=== PATIENT | male | born 1935 | race Caucasian/White ===

== ENCOUNTER → 2020-05-14 15:04 | Outpatient (BNVA) | payer MEDICARE, SELFPAY | PROVIDERS: Family Provider Nurse Practitioner; PCP Nurse Practitioner; Visit Provider Nurse Practitioner | DX: E78.2 Mixed hyperlipidemia (principal); I10 Essential (primary) hypertension | CPT/HCPCS: 80053; 80061; 81000; 85025 ==

== ENCOUNTER → 2020-11-12 10:58 | Outpatient (BNVA) | payer MEDICARE, SELFPAY | PROVIDERS: Family Provider Nurse Practitioner; PCP Nurse Practitioner; Visit Provider Nurse Practitioner | DX: I10 Essential (primary) hypertension (principal); E78.2 Mixed hyperlipidemia | CPT/HCPCS: 80053; 80061; 81000; 84443 ==

== ENCOUNTER → 2021-05-14 11:01 | Outpatient (BNVA) | payer MEDICARE, SELFPAY | PROVIDERS: Family Provider Nurse Practitioner; PCP Nurse Practitioner; Visit Provider Nurse Practitioner | DX: I10 Essential (primary) hypertension (principal); E78.2 Mixed hyperlipidemia | CPT/HCPCS: 80053; 80061; 81000; 84443 ==

== ENCOUNTER → 2021-11-19 13:49 | Outpatient (BNVA) | payer MEDICARE, SELFPAY | PROVIDERS: Family Provider Nurse Practitioner; PCP Nurse Practitioner; Visit Provider Nurse Practitioner | DX: I10 Essential (primary) hypertension (principal); E78.2 Mixed hyperlipidemia | CPT/HCPCS: 80053; 80061; 81000; 85025 ==

== ENCOUNTER → 2022-06-10 11:22 | Outpatient (BNVA) | payer MEDICARE, SELFPAY | PROVIDERS: Family Provider Nurse Practitioner; PCP Nurse Practitioner; Visit Provider Nurse Practitioner | DX: I10 Essential (primary) hypertension (principal); E78.2 Mixed hyperlipidemia; H61.23 Impacted cerumen, bilateral | CPT/HCPCS: 80053; 80061; 81000; 84443 ==

== ENCOUNTER → 2022-11-25 11:18 | Outpatient (BNVA) | payer MEDICARE, SELFPAY | PROVIDERS: Family Provider Nurse Practitioner; PCP Nurse Practitioner; Visit Provider Nurse Practitioner | DX: E55.9 Vitamin D deficiency, unspecified (principal); I10 Essential (primary) hypertension; E78.2 Mixed hyperlipidemia | CPT/HCPCS: 80053; 80061; 81000; 82306; 84443; 85025 ==

== ENCOUNTER → 2023-02-17 10:13 | Outpatient (BNVA) | payer MEDICARE, SELFPAY | PROVIDERS: Family Provider Nurse Practitioner; PCP Nurse Practitioner; Visit Provider Nurse Practitioner | DX: I10 Essential (primary) hypertension (principal); E55.9 Vitamin D deficiency, unspecified; Z87.891 Personal history of nicotine dependence | CPT/HCPCS: 71046; 80053; 80061; 82306; 85025 ==

== ENCOUNTER → 2023-08-04 09:30 | Outpatient (BNVA) | payer MEDICARE, SELFPAY | PROVIDERS: Family Provider Nurse Practitioner; PCP Nurse Practitioner; Visit Provider Nurse Practitioner | DX: E55.9 Vitamin D deficiency, unspecified (principal); E78.2 Mixed hyperlipidemia; I10 Essential (primary) hypertension; Z23 Encounter for immunization | CPT/HCPCS: 80053; 80061; 82306; 84443 ==

== ENCOUNTER → 2024-01-27 09:50 | Outpatient (BNVA) | payer MEDICARE, SELFPAY | PROVIDERS: Family Provider Nurse Practitioner; PCP Nurse Practitioner; Visit Provider Nurse Practitioner | DX: I10 Essential (primary) hypertension (principal); E55.9 Vitamin D deficiency, unspecified | CPT/HCPCS: 80053; 80061; 82306; 82607; 84443 ==

== ENCOUNTER → 2024-07-07 08:14 | Outpatient (BNVA) | payer MEDICARE, SELFPAY | PROVIDERS: Family Provider Nurse Practitioner; PCP Nurse Practitioner; Visit Provider Nurse Practitioner | DX: I10 Essential (primary) hypertension (principal); E53.8 Deficiency of other specified B group vitamins | CPT/HCPCS: 80053; 80061; 82607; 84443 ==

== ENCOUNTER → 2024-12-08 10:43 | Outpatient (BNVA) | payer MEDICARE, SELFPAY | PROVIDERS: Family Provider Nurse Practitioner; PCP Nurse Practitioner; Visit Provider Nurse Practitioner | DX: I10 Essential (primary) hypertension (principal); E53.8 Deficiency of other specified B group vitamins; E78.2 Mixed hyperlipidemia | CPT/HCPCS: 71046; 74018; 80053; 82306; 82607; 85025 ==

== ENCOUNTER → 2025-05-18 08:46 | Outpatient (BNVA) | payer MEDICARE, SELFPAY | PROVIDERS: Family Provider Nurse Practitioner; PCP Nurse Practitioner; Visit Provider Nurse Practitioner | DX: E78.2 Mixed hyperlipidemia (principal); E53.8 Deficiency of other specified B group vitamins; E55.9 Vitamin D deficiency, unspecified | CPT/HCPCS: 80053; 80061; 82306; 82607; 84443 ==

== ENCOUNTER 2025-08-22 11:40 | Inpatient (IN) | payer MEDICARE, SELFPAY ==
[2025-08-22] VITALS (48 sets, daily range): BP systolic 49–163; BP diastolic 37–93; PULSE 39–100; RESP 14–33; TEMP 28.7–35.6; O2SAT 79–100; BMI 23.8
--- NOTE | 2025-08-22 11:42 | CT_ITS ---
WS: [id number] CT HEAD NONCONTRAST HISTORY: Altered mental status, CVA TECHNIQUE: Contiguous axial imaging performed through the brain. Bone and soft tissue windows. Sagittal and coronal reformats reviewed. All CT scans at [facility] use at least one of these dose optimization techniques: automated exposure control; mA and/or kV adjustment per patient size (includes targeted exams where dose is matched to clinical indication); or iterative reconstruction. DLP: 1222.08 mGy.cm COMPARISON: None available. No acute intracranial hemorrhage, midline shift or mass effect. Moderate symmetric atrophy. There is both cerebellar and cerebral atrophy and mild small vessel disease. Ventricles: Ventricles and extra-axial spaces are mildly prominent on the basis of atrophy. No inferior displacement of the cerebellar tonsils. Paranasal sinuses: As visualized are clear. Mastoid air cells: Well pneumatized. Calvarium and scalp: Skull is intact with no soft tissue edema or swelling. CT/CT head wo con* [id number] IMPRESSION: 1. No acute intracranial hemorrhage or edema. 2. Moderate cerebral and cerebellar atrophy. 3. Minimal small vessel changes. 4. No fracture.
--- NOTE | 2025-08-22 11:43 | XR_ITS ---
WS: [id number] Exam: XR chest 1V portable [id number] Date/Time of Exam: 08/22/2025 11:43 AM Reason For Exam: dyspnea/cough Comparison 12/08/2024. Lungs are clear and fully inflated. Normal cardiomediastinal silhouette and regional bony elements. No pleural effusion. XR/XR chest 1V portable [id number] IMPRESSION: 1. Negative chest.
--- NOTE | 2025-08-22 11:47 | W.ED.GENADLT ---
HPI - General Adult General: Chief complaint: Altered Mental Status Stated complaint: unresponsive Time Seen by Provider: 08/22/25 11:42 History of Present Illness: 89-year-old male presents emergency room via EMS unresponsive. Patient was a subject of a welfare check 3 days ago at which time he was reported to have answered the door ambulating and talked to law enforcement. Another welfare check was called for today he was found naked on the floor and unresponsive. His last known well was going to be greater than 3 days ago. He is nonresponsive with a fixed gaze to the right. He has abrasions on his knees there is no family members available with him the history is from old records and from EMS. Only family lives out of state which is why the welfare checks were done. Related Data Home Medications ?Medication ?Instructions ?Recorded ?Confirmed aspirin 81 mg tablet,delayed 81 mg PO DAILY 05/14/20 08/22/25 release Previous Rx's ?Medication ?Instructions ?Recorded docusate sodium 100 mg capsule 100 mg PO BID #60 caps 02/23/25 (Colace) cholecalciferol (vitamin D3) 125 125 mcg PO DAILY #30 caps 05/18/25 mcg (5,000 unit) capsule cyanocobalamin (vitamin B-12) 1,000 mcg IM .every12 weeks #1 mL 05/18/25 1,000 mcg/mL injection solution fenofibrate nanocrystallized 145 145 mg PO DAILY #90 tabs 05/18/25 mg tablet (Tricor) lisinopril 10 mg tablet 10 mg PO DAILY #90 tabs 05/18/25 metoprolol tartrate 25 mg tablet 25 mg PO BID #180 tabs 05/18/25 syringe with needle 3 mL 22 gauge #1 ea 05/18/25 x 1 Allergies Allergy/AdvReac Type Severity Reaction Status Date / Time No Known Allergies Allergy Verified 05/18/25 08:19 Review of Systems General: Reports: ROS unobtainable due to medical condition and ROS unobtainable due to mental status [facility] PFSH: Medical History Personal history of nicotine dependence Mixed hyperlipidemia Essential hypertension Surgical History History of prostatectomy History of hernia repair Family History Grandfather Cancer Throat Social History Smoking and tobacco/nicotine status: current every day tobacco/nicotine user Second hand smoke exposure: Yes Alcohol intake: unknown Substance/Drug Use: unknown Adopted: No Caregiver/support person: No Lives independently: Yes Household members: spouse Housing: House Marital status: Current occupational status: retired Do you think of yourself as: Straight/Heterosexual Current gender identity: Male Physical Exam HENMT: COMMON NORMALS: normocephalic, atraumatic and hearing grossly normal bilaterally HEAD & SCALP: normocephalic and atraumatic Eye: OTHER: Fixed gaze to the right Resp: COMMON NORMALS: normal respiratory effort, No retractions, No use of accessory muscles and clear to auscultation bilaterally AUSCULTATION: clear to auscultation bilaterally Cardio: COMMON NORMALS: regular rate, regular rhythm and No murmurs present (Cardio) RATE: regular rate RHYTHM: regular rhythm GI: COMMON NORMALS: Soft to palpation and No hepatosplenomegaly present AUSCULTATION: Yes normoactive bowel sounds PALPATION: Yes Soft to palpation, No Tenderness to palpation present (GI), No Guarding due to palpation present (GI) and Yes No hepatosplenomegaly present Extremity: COMMON NORMALS: normal to inspection, capillary refill normal, no clubbing, cyanosis or edema, no calf tenderness and no pedal edema Skin: OTHER: Abrasions on the knees partial-thickness no signs active drainage Course Vital Signs: Vital signs: Vital Signs Temperature 99.0 F 08/26/25 23:54 Pulse Rate 91 08/26/25 23:54 Respiratory Rate 22 H 08/26/25 23:54 Blood Pressure 77/48 08/26/25 23:54 Pulse Oximetry 59 L 08/26/25 23:54 Oxygen Delivery Me thod Nasal Cannula 08/26/25 23:54 Oxygen Flow Rate 3 08/26/25 23:54 Fraction of Inspir ed Oxygen 40 08/25/25 08:28 MDM - General Adult Medical Decision Making Long discussion with family numbers on the phone they would like a modified code initially. They do not wanted to be intubated but willing to be CPR. Discussed with him that his condition is very precipitous. 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 Also discussed with him that if we were going to pursue aggressive treatment with this he would need to be transferred however currently he is not in any condition to even tolerate a biopsy. After long discussion and they opted instead to keep the patient and our facility wish to do what we can for now and then they will reevaluate. Discussed with hospitalist orders written. Patient is a modified Do Not Recussitate they are not willing to allow his ACLS protocols and chest compressions but do not want him to be intubated. Patient has metabolic encephalopathy sepsis elevated troponin acute kidney injury with leukocytosis. Hypokalemia with potassium 2.7 lactic acid elevated at 5.6 acute kidney injury with creatinine of 1.9. Initial delta 2-hour delta troponin -9. Lipase is 382 no signs of UTI serum ketones negative and flu COVID and RSV negative. Patient given IV fluid bolus for sepsis also started on IV antibiotics discussed with hospitalist orders are written. Medical Records I reviewed the patient's medical records. Lab Data I reviewed the patient's lab results. 08/24/25 11:24 08/25/25 04:[address] 08/22/25 11:42 IMPRESSION: 1. No acute intracranial hemorrhage or edema. 2. Moderate cerebral and cerebellar atrophy. 3. Minimal small vessel changes. 4. No fracture. Abdomen/Pelvis CT 08/22/25 11:53 IMPRESSION: 1. 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 Mass measures 4.7 x 5.3 x 7.0 cm. Encasement and possible occlusion of the RIGHT renal artery and vein although there is no enlargement of the kidney. 2. Additional mesenteric and retroperitoneal masses identified. 3. The largest additional mass in the RIGHT inguinal region extends inferiorly along the spermatic cord into the scrotum. There is marked scrotal wall thickening. Possible testicular mass. 4. Differential of the above findings includes lymphoma and testicular lymphoma. 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 Sarcoma should also be considered. 5. Donis catheter is present but the balloon is distended within the urethra. Urinary bladder remains dilated. Urethra is being slightly displaced to the LEFT by the testicular and scrotal mass. 6. Cholelithiasis without evidence for acute cholecystitis. Notified Raza Bruno DO at 08/22/2025 1:15 PM. Chest X-Ray 08/24/25 11:08 IMPRESSION: 1. Limited inspiration. No acute process is suspected. Laboratory Results WBC 7.19 10^3/uL (3.29-11.43) 08/22/25 11:49 RBC 3.98 10^6/uL (3.85-5.65) 08/22/25 11:49 Hgb 13.20 g/dL (11.27-16.99) 08/22/25 11:49 Hct 38.7 % (37-53) 08/22/25 11:49 MCV 97.2 fl (82-101) 08/22/25 11:49 MCH 33.2 pg (27-33) H 08/22/25 11:49 MCHC 34.1 g/dL (30-55) 08/22/25 11:49 RDW 14.6 % (12.1-15.1) 08/22/25 11:49 Plt Count 165 10^3/cmm (157-399) 08/22/25 11:49 MPV 11.7 fL (7.4-10.4) H 08/22/25 11:49 Neut % (Auto) 68.6 % 08/22/25 11:49 Lymph % (Auto) 13.9 % 08/22/25 11:49 [place] % (Auto) 16.3 % 08/22/25 11:49 Eos % (Auto) 0.1 % 08/22/25 11:49 Baso % (Auto) 0.1 % 08/22/25 11:49 Neut # (Auto) 4.93 10^3/uL (1.8-7.7) 08/22/25 11:49 Lymph # (Auto) 1.0 10^3/uL (0.8-4.8) 08/22/25 11:49 [place] # (Auto) 1.2 10^3/uL (0.2-0.9) H 08/22/25 11:49 Eos # (Auto) 0.0 10^3/uL (0.0-0.8) 08/22/25 11:49 Baso # (Auto) 0.0 10^3/uL (0.0-0.1) 08/22/25 11:49 Nucleated RBC % (auto) 0 % 08/22/25 11:49 Nucleated RBCs # 0.0 /100WBC 08/22/25 11:49 Specimen Type Arterial 08/22/25 11:35 Sample Site Radial, right 08/22/25 11:35 ABG pH 7.26 (7.35-7.45) L 08/22/25 11:35 ABG pCO2 40.7 mmHg (35-45) 08/22/25 11:35 ABG pO2 49.6 mmHg (80.0-100.0) L 08/22/25 11:35 ABG PO2/FiO2 Ratio 236 08/22/25 11:35 ABG HCO3 18.1 mmol/L (22-26) L 08/22/25 11:35 ABG O2 Saturation 81.6 08/22/25 11:35 ABG Base Excess -8.5 mmol/L (-2.0-2.0) L 08/22/25 11:35 Rob Test Pos 08/22/25 11:35 A-a O2 Gradient 6.5 mmHg (5-10) 08/22/25 11:35 Hematocrit 41.3 % (42-52) L 08/22/25 11:35 Hgb O2 Saturation 80.6 % (95-100) L 08/22/25 11:35 Carboxyhemoglobin 1.1 %THgb (0.4-20.1) 08/22/25 11:35 Methemoglobin 0.2 % (0.4-1.5) L 08/22/25 11:35 Total Hemoglobin 13.5 g/dL (14-18) L 08/22/25 11:35 Sodium 150.0 mmol/L (131-143) H 08/22/25 11:35 Potassium 2.4 mmol/L (3.5-5.0) L 08/22/25 11:35 Glucose 218.0 mg/dL (70-115) H 08/22/25 11:35 Ionized Calcium 1.7 mmol/L (1.1-1.4) H 08/22/25 11:35 O2 Delivery Device Room air 08/22/25 11:35 FiO2 21.0 % 08/22/25 11:35 Radio Recorder ID [place] 08/22/25 11:35 Sodium 147 mmol/L (136-145) H 08/22/25 11:49 Potassium 2.5 mmol/L (3.5-5.1) L* 08/22/25 11:49 Chloride 105 mmol/L (98-107) 08/22/25 11:49 Carbon Dioxide 19 mmol/L (22-29) L 08/22/25 11:49 Anion Gap 25.5 (5-19) H 08/22/25 11:49 BUN 43 mg/dL (8-23) H 08/22/25 11:49 Creatinine 2.2 mg/dL (0.7-1.2) H 08/22/25 11:49 GFR Calculation Not Reportable 08/22/25 11:49 Glucose 221 mg/dL (65-115) H 08/22/25 11:49 Calculated Osmolality 322 mOsm/kg (285-295) H 08/22/25 11:49 Lactic Acid 9.8 mmol/L (0.5-2.2) H* 08/22/25 11:49 Lactic Acid (Sepsis) 8.5 mmol/L (0.5-2.2) H* 08/22/25 14:24 Calcium 13.5 mg/dL (8.5-10.5) H 08/22/25 11:49 Magnesium 1.8 mg/dL (1.7-2.3) 08/22/25 11:49 Total Bilirubin 2.3 mg/dL (0.15-1.2) H 08/22/25 11:49 AST 187 U/L (0-40) H 08/22/25 11:49 ALT 50 U/L (0-41) H 08/22/25 11:49 Alkaline Phosphatase 54 U/L (40-130) 08/22/25 11:49 Creatine Kinase 7440 U/L (39-308) H* 08/22/25 11:49 Troponin T Baseline 82 ng/L (0-15) H 08/22/25 11:49 Troponin T 120 Minute 72.70 ng/L (0-15) H 08/22/25 13:05 Delta Troponin T -9.30 ABS# (0-10) L 08/22/25 13:05 Total Protein 7.0 g/dL (6.6-8.7) 08/22/25 11:49 Albumin 3.5 g/dL (3.5-5.2) 08/22/25 11:49 Globulin 3.5 g/dL (1.3-4.6) 08/22/25 11:49 Lipase 382 U/L (13-60) H 08/22/25 11:49 Urine Color Dark yellow (Yellow) A 08/22/25 12:12 Urine Appearance Clear (CLEAR) 08/22/25 12:12 Urine pH 5.5 (5-7) 08/22/25 12:12 Ur Specific [place] 1.025 (1.005-1.030) 08/22/25 12:12 Urine Protein 1+ (Negative) A 08/22/25 12:12 Urine Glucose (UA) Negative (Normal) 08/22/25 12:12 Urine Ketones Trace (Negative) 08/22/25 12:12 Urine Blood Negative (Negative) 08/22/25 12:12 Urine Nitrate Negative (Negative) 08/22/25 12:12 Urine Bilirubin 2+ (Negative) H 08/22/25 12:12 Urine Urobilinogen 1.0 mg/dL (Negative) 08/22/25 12:12 Ur Leukocyte Esterase Trace (Negative) A 08/22/25 12:12 Urine RBC 0-2 /hpf (0-2) 08/22/25 12:12 Urine WBC 0-5 /hpf (0-5) 08/22/25 12:12 Ur Squamous Epith Cells 0-5 /hpf (0-5) 08/22/25 12:12 Amorphous Sediment Not Reportable 08/22/25 12:12 Urine Bacteria None seen /hpf (NONE) 08/22/25 12:12 Hyaline Casts 2.05 /lpf 08/22/25 12:12 Serum Ketones Negative (Negative) 08/22/25 11:49 Influenza A (PCR) Negative (Negative) 08/22/25 13:45 Influenza Type B (PCR) Negative (Negative) 08/22/25 13:45 RSV (PCR) Negative (Negative) 08/22/25 13:45 SARS-CoV-2 (PCR) Negative (Negative) 08/22/25 13:45 All radiology interpretation(s) finalized by discharge EKG Data EKG 1: I personally reviewed and interpreted this EKG as follows: Computer generated interpretation: Head CT 08/22/25 11:42 IMPRESSION: 1. No acute intracranial hemorrhage or edema. 2. Moderate cerebral and cerebellar atrophy. 3. Minimal small vessel changes. 4. No fracture. Abdomen/Pelvis CT 08/22/25 11:53 IMPRESSION: 1. 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 Mass measures 4.7 x 5.3 x 7.0 cm. Encasement and possible occlusion of the RIGHT renal artery and vein although there is no enlargement of the kidney. 2. Additional mesenteric and retroperitoneal masses identified. 3. The largest additional mass in the RIGHT inguinal region extends inferiorly along the spermatic cord into the scrotum. There is marked scrotal wall thickening. Possible testicular mass. 4. Differential of the above findings includes lymphoma and testicular lymphoma. 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 Sarcoma should also be considered. 5. Donis catheter is present but the balloon is distended within the urethra. Urinary bladder remains dilated. Urethra is being slightly displaced to the LEFT by the testicular and scrotal mass. 6. Cholelithiasis without evidence for acute cholecystitis. Notified Raza Bruno DO at 08/22/2025 1:15 PM. Chest X-Ray 08/24/25 11:08 IMPRESSION: 1. Limited inspiration. No acute process is suspected. EKG 1111 2025-09-24 significant baseline artifact difficult to read. Rate of 48 QTc 380. No EKGs for comparison EKG 2: I personally reviewed and interpreted this EKG as follows: Interpretation: EKG 08/22/2025 rate of 50 significant baseline artifact unable to interpret compared to previous EKGs as persistent baseline artifact Computer generated interpretation: Head CT 08/22/25 11:42 IMPRESSION: 1. No acute intracranial hemorrhage or edema. 2. Moderate cerebral and cerebellar atrophy. 3. Minimal small vessel changes. 4. No fracture. Abdomen/Pelvis CT 08/22/25 11:53 IMPRESSION: 1. 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 Mass measures 4.7 x 5.3 x 7.0 cm. Encasement and possible occlusion of the RIGHT renal artery and vein although there is no enlargement of the kidney. 2. Additional mesenteric and retroperitoneal masses identified. 3. The largest additional mass in the RIGHT inguinal region extends inferiorly along the spermatic cord into the scrotum. There is marked scrotal wall thickening. Possible testicular mass. 4. Differential of the above findings includes lymphoma and testicular lymphoma. 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 Sarcoma should also be considered. 5. Donis catheter is present but the balloon is distended within the urethra. Urinary bladder remains dilated. Urethra is being slightly displaced to the LEFT by the testicular and scrotal mass. 6. Cholelithiasis without evidence for acute cholecystitis. Notified Raza Bruno DO at 08/22/2025 1:15 PM. Chest X-Ray 08/24/25 11:08 IMPRESSION: 1. Limited inspiration. No acute process is suspected. EKG 3: I personally reviewed and interpreted this EKG as follows: Interpretation: EKG still has persistent baseline artifact no acute ST elevation rate of 45 QTc 459. Compared to previous EKGs done same day Computer generated interpretation: Head CT 08/22/25 11:42 IMPRESSION: 1. No acute intracranial hemorrhage or edema. 2. Moderate cerebral and cerebellar atrophy. 3. Minimal small vessel changes. 4. No fracture. Abdomen/Pelvis CT 08/22/25 11:53 IMPRESSION: 1. 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 Mass measures 4.7 x 5.3 x 7.0 cm. Encasement and possible occlusion of the RIGHT renal artery and vein although there is no enlargement of the kidney. 2. Additional mesenteric and retroperitoneal masses identified. 3. The largest additional mass in the RIGHT inguinal region extends inferiorly along the spermatic cord into the scrotum. There is marked scrotal wall thickening. Possible testicular mass. 4. Differential of the above findings includes lymphoma and testicular lymphoma. 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 Sarcoma should also be considered. 5. Donis catheter is present but the balloon is distended within the urethra. Urinary bladder remains dilated. Urethra is being slightly displaced to the LEFT by the testicular and scrotal mass. 6. Cholelithiasis without evidence for acute cholecystitis. Notified Raza Bruno DO at 08/22/2025 1:15 PM. Chest X-Ray 08/24/25 11:08 IMPRESSION: 1. Limited inspiration. No acute process is suspected. Critical Care Time Critical Care Time: Critical Care Time: Yes Total Critical Care Time: 45 Attestation: The high probability of a clinically significant, sudden or life threatening deterioration of the patient's cardiovascular respiratory system(s) required my full and direct attention, intervention and personal management. The critical care time is as shown. This time is in addition to time spent performing any reported procedures but includes the following: [x] Data and vital sign review and interpretation [x] Patient assessment, examination and intervention [x] Documentation [x] Medication orders and management Discharge Plan Discharge Patient Disposition: Admitted As Inpatient Admit Provider: Jadon Weathers Condition: Stable Interventions: ED Discharge Assessment Last Done: 08/22/25 16:13 ED Charges Last Done: 08/22/25 16:13 Discharge Date/Time: 08/22/25 16:15 Coding Level of Care Code ED Residential Care Facility Manager for Vignesh Carrasco
[2025-08-22 11:48] LABS: ABG PCO2 40.7 mmHg (35-45); ABG PH Result 7.26 (7.35-7.45); Alveolar-Arterial Oxygen Gradi 6.5 mmHg (5-10); Arterial Blood Gas Hematocrit 41.3 % (42-52); Blood Gas Allen Test Pos; Blood Gas Operator Identificat MONRO; Blood Gas Sample Site Radial, right; Blood Gas Sample Type Arterial; Carboxyhemoglobin 1.1 %THgb (0.4-20.1); Glucose Level-ABG 218.0 mg/dL (70-115); HCO3 ABG 18.1 mmol/L (22-26); Ionized Calcium Level - ABG 1.7 mmol/L (1.1-1.4); Methemoglobin 0.2 % (0.4-1.5); Oxygen Saturation ABG 81.6; PO2 ABG 49.6 mmHg (80.0-100.0); PO2 FiO2 Ratio Arterial Blood 236; Potassium Level - ABG 2.4 mmol/L (3.5-5.0); Sodium Level - ABG 150.0 mmol/L (131-143)
--- NOTE | 2025-08-22 11:53 | CT_ITS ---
WS: [id number] CT ABDOMEN AND PELVIS NONCONTRAST HISTORY: Abdominal pain TECHNIQUE: Imaging performed through the abdomen and pelvis. Coronal and sagittal reformats are submitted. All CT scans at [facility] use at least one of these dose optimization techniques: automated exposure control; mA and/or kV adjustment per patient size (includes targeted exams where dose is matched to clinical indication); or iterative reconstruction. DLP: 840.39 mGy.cm COMPARISON: None available. Lower thorax: Mild dependent changes at the lung bases. No pneumonia. Normal size heart. Moderate size hiatal hernia. Liver: Normal size liver. No mass or bile duct dilatation. Gallbladder: Normally distended gallbladder with cholelithiasis. Pancreas: Normal size and attenuation. Normal pancreatic duct. No pancreatitis or mass. Spleen: Normal. Adrenal glands: Normal. No mass. Right kidney: Mild perinephric stranding. No obstruction. Left kidney: Mild perinephric stranding. No obstruction. Aorta: Dense calcification throughout the aorta. No aneurysm. Calcification continues into the iliac arteries. High-grade stenosis proximal RIGHT iliac artery. IVC: There is a large heterogeneous mass encasing the IVC at the level of the RIGHT renal artery and vein. Mass measures 4.7 x 5.3 cm. This mass extends over a length of 7.0 cm. There are additional scattered soft tissue masses. RIGHT lower quadrant metastatic deposit 1.8 cm. There are a few scattered retroperitoneal lymph nodes with the largest measuring up to 1.6 cm, LEFT retroperitoneum. Large mass in the RIGHT pelvis and inguinal region. The most inferior mass in the RIGHT inguinal region is contiguous along the spermatic cord into the scrotum. This mass extends over a length of at least 18 cm and is in part contiguous with small bowel. There is marked scrotal wall thickening. Suspect testicular mass. GI tract: No GI tract obstruction. Abdominal wall: Small umbilical hernia containing fat only. Pelvis: Urinary bladder is well distended. There is a Donis catheter present but the balloon is inflated in the urethra. The urethra is being displaced to the LEFT of midline by the scrotal/testicular mass. Osseous structures: Diffuse osteopenia. Multiple compression fractures. Fractures involving T11, T12, L1. CT/CT abdomen pelvis wo con [id number] IMPRESSION: 1. Large mass encasing the IVC at the level of the RIGHT renal artery and vein . Mass measures 4.7 x 5.3 x 7.0 cm. Encasement and possible occlusion of the RI GHT renal artery and vein although there is no enlargement of the kidney. 2. Additional mesenteric and retroperitoneal masses identified. 3. The largest additional mass in the RIGHT inguinal region extends inferiorly along the spermatic cord into the scrotum. There is marked scrotal wall thicke hoda. Possible testicular mass. 4. Differential of the above findings includes lymphoma and testicular lymphom a. 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 Sarcoma should also be c onsidered. 5. Donis catheter is present but the balloon is distended within the urethra. Urinary bladder remains dilated. Urethra is being slightly displaced to the LEF T by the testicular and scrotal mass. 6. Cholelithiasis without evidence for acute cholecystitis. Notified Raza Bruno DO at 08/22/2025 1:15 PM.
[2025-08-22 12:02] LABS: Hematocrit 38.7 % (37-53); Hemoglobin 13.20 g/dL (11.27-16.99); Mean Corpuscular HGB Conc 34.1 g/dL (30-55); Mean Corpuscular Hemoglobin 33.2 pg (27-33); Mean Corpuscular Volume 97.2 fl (82-101); Nucleated Red Blood Cells % 0 %; Platelet Count 165 10^3/cmm (157-399); Red Blood Count 3.98 10^6/uL (3.85-5.65); White Blood Count 7.19 10^3/uL (3.29-11.43)
[2025-08-22 12:12] LABS: Ketone (Acetest) Serum Negative (Negative)
--- NOTE | 2025-08-22 12:12 | PC.PHAR ---
Verified med list with MANISHA [place]
--- NOTE | 2025-08-22 12:14 | ECG_ITS ---
[facility]25[facility] Pat Name: Edil Fine Department: Room: Gender: Male Pharmacy Clinical Coordinator: : 1935 Requested By: Raza Orozco Order Number: [id number] Cagle MD: Seun Aparicio M.D. Measurements Intervals [place] Rate: 48 P: 0 CO: 0 QRS: -29 QRSD: 153 T: 180 QT: 422 QTc: 380 Interpretive Statements TECHNICALLY POOR TRACING - PLEASE REPEAT ECG Compared to ECG 04/06/2018 17:20:30 ECG NO LONGER INTERPRETABLE DUE TO ARTIFACT Electronically Signed On 08-23-2025 20:22:15 MOLD CARPENTER by Seun Aparicio M.D. [email or web address]
[2025-08-22 12:18] LABS: Troponin(5th) Baseline 82 ng/L (0-15)
[2025-08-22 12:21] LABS: Alanine Aminotransferase 50 U/L (0-41); Albumin Level 3.5 g/dL (3.5-5.2); Alkaline Phosphatase 54 U/L (40-130); Anion Gap 25.5 (5-19); Aspartate Amino Transferase 187 U/L (0-40); Blood Urea Nitrogen 43 mg/dL (8-23); Calcium 13.5 mg/dL (8.5-10.5); Carbon Dioxide 19 mmol/L (22-29); Chloride 105 mmol/L (98-107); Globulin 3.5 g/dL (1.3-4.6); Glucose 221 mg/dL (65-115); Magnesium 1.8 mg/dL (1.7-2.3); Osmolality Calculated 322 mOsm/kg (285-295); Sodium 147 mmol/L (136-145); Total Protein 7.0 g/dL (6.6-8.7)
[2025-08-22 12:24] LABS: Glucose Urine UA Negative (Normal); Nitrate Urine Negative (Negative); Specific Gravity, Urine 1.025 (1.005-1.030)
[2025-08-22 12:27] LABS: Lactic Sepsis W/Reflex 9.8 mmol/L (0.5-2.2); Potassium 2.5 mmol/L (3.5-5.1)
[2025-08-22 12:27] LABS: Add Urine Microscopic? YES
[2025-08-22 12:33] LABS: Lipase 382 U/L (13-60)
--- NOTE | 2025-08-22 12:51 | PC.NURSE ---
Call to pts daughter vanna who is listed as emergency contact. Gave pt update and confirmed that Dr. Bruno could call once we had CT results and labs back.
[2025-08-22 12:56] LABS: Reflex Lactate Order REFLEX LACTIC ORDERD
[2025-08-22] MEDS: norepinephrine 4 MG/250 ML BAG 30 MG IV (13:15)
--- NOTE | 2025-08-22 13:15 | PC.NURSE ---
unable to obtain manual or automatic blood pressure. this nure, charge nurse and housekeeping and laundry team leader attempted. notified.
[2025-08-22] MEDS: piperacillin-tazobactam 3.375 GM in sodium chloride 0.9% (plus) 50 ML IV (13:17)
[2025-08-22] MEDS: lidocaine 1% 5 ML in potassium chloride premix 100 ML 26.25 ML IV (13:26)
[2025-08-22] MEDS: ketamine 100 mg/mL Inj 5 mL IVP (13:39)
--- NOTE | 2025-08-22 13:41 | PC.NURSE ---
unable to obtain rectal temp. zamzam lomeli applied to PT
--- NOTE | 2025-08-22 13:44 | PC.NURSE ---
This nurse lighthouse keeper and ER charge nurse attempted to place a spence catheter unsuccessful Dr. Bruno notified
--- NOTE | 2025-08-22 13:56 | ECG_ITS ---
[facility] Date: 2025-08-22 Pat Name: Edil Fine Department: Room: Gender: Male Rn Wound: : 1935 Requested By: Raza Orozco Order Number: [id number] Gurjit MD: Seun Aparicio M.D. Measurements Intervals [place] Rate: 50 P: 0 MS: 0 QRS: 0 QRSD: 0 T: 267 QT: 412 QTc: 378 Interpretive Statements TECHNICALLY POOR TRACING - NONDIAGNOSTIC EKG Electronically Signed On 08-27-2025 17:52:14 EXPLOSIVE ORDNANCE DISPOSAL SPECIALIST by Seun Aparicio M.D. [email or web address]
--- NOTE | 2025-08-22 14:07 | PC.NURSE ---
LUCIA AGGARWAL CONTACTED AND VERBALIZED WITH DR. RAMOS AND THIS NURSE THAT FAMILY WANTS PT TO BE DNI. LUCIA LEFT CONTACT NUMBER FOR ANY PT CHANGES. .
[2025-08-22 14:25] LABS: Respiratory Syncytial Virus Ce NEGATIVE (Negative); SARS-CoV-2 PCR NEGATIVE (Negative)
[2025-08-22 15:04] LABS: Lactic Acid level (Lactate) 8.5 mmol/L (0.5-2.2)
[2025-08-22] MEDS: amiodarone 150 MG/100 ML PREMIX 400 MG IV (15:23)
[2025-08-22] MEDS: AMIODARONE HCL/D5W 900 MG/500 ML BAG 33.33 MG IV (15:46)
--- NOTE | 2025-08-22 15:48 | PM.HP ---
Providers/Chief Complaint Admitting Physician: Jadon Weathers MD Primary Care Provider: Efrem Regalado, NIKOLAS-Evans Chief Complaint: Found naked and unresponsive at home History of Present Illness Edil Fine is a 89 year old male that was brought to the ER this afternoon by family members given reports of being found unconscious on the floor. Last time patient was seen was about 3 days ago, thereby prompting a welfare check by the police. Upon arrival by the police at patient's home, patient was found on the floor, with blisters on the skin. Consequently, he was brought to the ER for further evaluation. At the ER, patient was found to have some blisters/skin breakdown. Further evaluation revealed some elevated CK level and the acute renal failure. He was also found to be acidotic, with low BP. He was given some fluid boluses, and thereafter started on some Levophed drip, the blood pressure had been failed to be corrected with the fluid boluses. Given further complications, patient was started on assisted ventilation with BiPAP, given persistently low oxygen saturation that was not corrected adequately with oxygen supplementation by nasal cannula. As at the time that I saw him there in the ER, he was still mentally altered. Otherwise, the nurse reports the patient was having some episodes of V-fib, and the for which amiodarone drip has been ordered by the ER physician. There was no family member or close relative that was close by to give any further information. The above information was obtained by reviewing the ER physician's note, as well as information they are obtained from the ER physician and the ER nurse. Review of Systems Narrative: Unable to obtain review of systems given patient's altered mental status. Medications/Allergies Home Medications ?Medication ?Instructions ?Recorded ?Confirmed ?Last Taken ?Type aspirin 81 mg tablet,delayed 81 mg PO DAILY 05/14/20 08/22/25 Unknown History release docusate sodium 100 mg capsule 100 mg PO BID #60 caps 02/23/25 08/22/25 Unknown Rx (Colace) cholecalciferol (vitamin D3) 125 125 mcg PO DAILY #30 caps 05/18/25 08/22/25 Unknown Rx mcg (5,000 unit) capsule cyanocobalamin (vitamin B-12) 1,000 mcg IM .every12 weeks #1 mL 05/18/25 08/22/25 Unknown Rx 1,000 mcg/mL injection solution fenofibrate nanocrystallized 145 145 mg PO DAILY #90 tabs 05/18/25 08/22/25 Unknown Rx mg tablet (Tricor) lisinopril 10 mg tablet 10 mg PO DAILY #90 tabs 05/18/25 08/22/25 Unknown Rx metoprolol tartrate 25 mg tablet 25 mg PO BID #180 tabs 05/18/25 08/22/25 Unknown Rx syringe with needle 3 mL 22 gauge #1 ea 05/18/25 08/22/25 Unknown Rx x 1 Allergies Allergy/AdvReac Type Severity Reaction Status Date / Time No Known Allergies Allergy Verified 05/18/25 08:19 PFSH Acute PFSH: Medical History Personal history of nicotine dependence Mixed hyperlipidemia Essential hypertension Surgical History History of prostatectomy History of hernia repair Family History Grandfather Cancer Throat Social History Smoking and tobacco/nicotine status: current every day tobacco/nicotine user Second hand smoke exposure: Yes Alcohol intake: unknown Substance/Drug Use: unknown Adopted: No Caregiver/support person: No Lives independently: Yes Household members: spouse Housing: House Marital status: Current occupational status: retired Do you think of yourself as: Straight/Heterosexual Current gender identity: Male Vitals/I&O/Wt Last Vital Signs Temp 83.6 F L 08/22/25 15:42 Pulse 40 L 08/22/25 15:30 Resp 16 08/22/25 15:30 BP 138/77 08/22/25 15:30 Pulse Ox 100 08/22/25 15:30 O2 Del Method BiPAP 08/22/25 15:30 FiO2 70 08/22/25 14:33 08/22/25 08/22/25 08/22/25 06:59 14:59 22:59 Intake Total 3435 / 3435 Balance 3435 / 3435 Weight last 48 hrs Weight 73.028 kg Physical Exam Narrative: Const: GENERAL APPEARANCE : Unresponsive pat ient. BiPAP in si tu. Chest: COMMONS NORMALS: n ormal inspection o f the chest Resp: BiPAP in situ. Re markable crackles with significant b ronchial breath so unds on the right. No wheezes/rhonc hi appreciated. Cardio: COMMON NORMALS: no JVD RATE: tachyc ardic (Rate in the 120s.) HEART LESA NDS: Unable to flavio reciate heart soun ds. PERIPHERAL PU LSES: Peripheral p ulses bilateral fa int pulses GI: COMMON NORMALS: Ot herwise obese abdo men. Normal to in spection, nondiste nded, normoactive bowel sounds prese nt Extremity: COMMON NORMALS: Re latively cool extr emities. Normal t o inspection and n o pedal edema Neuro: COMMON NORMALS: Un responsive patient , overall. Sponta neous bilateral ga ze is noted. Othe rwise, no focal mo tor deficits immed iately appreciated Skin: Remarkablly dry sk in with dry mucous membrane. No obv ious rashes/abnorm al lesions appreci ated. Data 08/22/25 11:49 08/22/25 11:49 CXR: Radiologist's impression: Comparison 12/08/2024. Lungs are clear and fully inflated. Normal cardiomediastinal silhouette and regional bony elements. No pleural effusion. IMPRESSION: Negative chest. CT Abd/Pel: Radiologist's impression: IMPRESSION: 1. 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 Mass measures 4.7 x 5.3 x 7.0 cm. Encasement and possible occlusion of the RIGHT renal artery and vein although there is no enlargement of the kidney. 2. Additional mesenteric and retroperitoneal masses identified. 3. The largest additional mass in the RIGHT inguinal region extends inferiorly along the spermatic cord into the scrotum. There is marked scrotal wall thickening. Possible testicular mass. 4. Differential of the above findings includes lymphoma and testicular lymphoma. 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 Sarcoma should also be considered. 5. Donis catheter is present but the balloon is distended within the urethra. Urinary bladder remains dilated. Urethra is being slightly displaced to the LEFT by the testicular and scrotal mass. 6. Cholelithiasis without evidence for acute cholecystitis. A&P Assessment and plan 1. Acute metabolic encephalopathy: 2. Acute metabolic acidosis: 3. Acute renal failure due to rhabdomyolysis: 4. Lactic acid increased: 5. Acute hypokalemia: 6. Ventricular tachyarrhythmia: 7. Elevated troponin: 8. Essential hypertension: 9. Mixed hyperlipidemia: 10. Acute hypoxic respiratory failure: 11. Mass of right inguinal region: Plan: 1. Acute metabolic encephalopathy: Cause not clear at this time. Patient admitted to the medical ICU. Acute abdominal suspected causative symptoms empirically. 2. Acute renal failure due to rhabdomyolysis: Continue rehydration with half saline, given mild elevated sodium level. Otherwise, will give fluid boluses for low blood pressure. 3. Suspected sepsis with associated metabolic acidosis: No obvious source of infection noted by me at this time. However, acknowledged the findings of left thigh mass. Currently on Levophed, continue with this at this time. Will continue ongoing empiric antibiotics, [facility] from the ER. 4. Acute hypokalemia: Continue potassium replacement, prefer with the running intermittent basis. Recheck potassium in the morning, and the take it from there. 5. Ventricular tachyarrhythmia: Patient reports of some V-fib in the ER. Not sure whether he was stable unstable with this. Otherwise, patient was mental altered on presentation, well blood pressure maintained with the Levophed drip. Given concomitant elevated troponin, which is likely due to poor renal clearance with the hypotension, therefore strongly suggestive of type II myocardial leak, I have gone ahead and put in a consult with cardiology. I spoke with Dr. Aparicio, the roller coaster designer, who plans to see patient later, and direct further care regarding this. 6. Acute hypoxic respiratory failure: Continue BiPAP, and possibly intubated as needed. Continue to treat empirically; respite therapist to assess and treat. 7. 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 Will further address this when patient is able to wake up and/or when family arrives and gives further directives. Outpatient follow-up likely to be needed, with possible biopsy and a referral to oncology. 8. Essential hypertension + hyperlipidemia: These & other chronic medical problems currently stable. I will hold all antihypertensives at the rest of the home medications at this time. Other Treatment Plans: Repeat BMP and CBC in the morning. Repeat ABG in the morning as well,. Further plans to be adjusted as clinically patient evolves. See my orders and instructions for more details. PDMP PDMP Reviewed: Not Reviewed Attestations Medical Necessity Statement*: Patient admitted for apparent severe clinical condition, as outlined in the Assessment & Plan section above. Patient will need up to 2 midnight stay, estimated, at least, to adequately and appropriately treat and optimally control above-named clinical conditions, which include the acute metabolic encephalopathy with associated suspected severe sepsis, acute renal failure with severe rhabdomyolysis, acute hypokalemia, unspecified cardiac dysrhythmias, etc. Coding Level of Care Code Critical Care >/= 30 minutes Critical care time (in minutes): 35 The high probability of a clinically significant, sudden or life threatening deterioration of the patient's [respiratory, renal, cardiac, neurologic and other vital ] system(s) required my full and direct attention, intervention and personal management. The critical care time is as shown. This time is in addition to time spent performing any reported procedures but includes the following: [x] Data and vital sign review and interpretation [x] Patient assessment, examination and intervention [x] Documentation [x] Medication orders and management Diagnoses Acute metabolic encephalopathy G93.41 Acute metabolic acidosis E87.21 Acute renal failure due to rhabdomyolysis N17.9; M62.82 Lactic acid increased E87.20 Acute hypokalemia E87.6 Ventricular tachyarrhythmia I47.20 Elevated troponin R79.89 Essential hypertension I10 Mixed hyperlipidemia E78.2 Acute hypoxic respiratory failure J96.01 Mass of right inguinal region R19.09
--- NOTE | 2025-08-22 16:33 | ECG_ITS ---
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 Measurements Intervals [place] Rate: 45 P: 0 KS: 0 QRS: 85 QRSD: 137 T: 82 QT: 526 QTc: 459 Interpretive Statements TECHNICALLY POOR TRACING - NONDIAGNOSTIC EKG Electronically Signed On 08-27-2025 17:47:00 [employer] by Seun Aparicio M.D. [email or web address]
--- NOTE | 2025-08-22 16:40 | PC.NURSE ---
Arrived from ED
--- NOTE | 2025-08-22 17:01 | USCV_ITS ---
Edil Fine Age: 89 Gender: M : 1935 Exam Date: 08/22/2025 20:28 Ordering Phys: Lisette Rosario Technologist: LUIS ALBERTO Exam Location: [facility] [place] Indication: unresponsive on BIPAP in ICU-12, Acute renal failure. History of atrial fibrillation BP: 163 / 93 HR: 50 Rhythm: Sinus Technical Quality: Technically difficult c/o limited windows MEASUREMENTS (Male / Female) Normal Values 2D ECHO LV Diastolic Diameter PLAX 4.2 cm 4.2 - 5.9 / 3.9 - 5.3 cm IVS Diastolic Thickness 1.5 cm 0.6 - 1.0 / 0.6 - 0.9 cm IVS Systolic Thickness 1.7 cm LVPW Diastolic Thickness 0.7 cm 0.6 - 1.0 / 0.6 - 0.9 cm LVPW Systolic Thickness 0.9 cm LVOT Diameter 1.7 cm LV Ejection Fraction 2D Teich 31.4 % LV Ejection Fraction MOD 4C 54.7 % LV Ejection Fraction MOD 2C 65.3 % LV Ejection Fraction 2C AL 69.7 % LA Diameter 3.2 cm Aorta at Sinotubular Diameter 2.3 cm IVC Diameter 2.4 cm M-MODE LA Ao Ratio MM 1.0 AV Cusp Separation MM 1.7 cm DOPPLER AV Peak Velocity 107.0 cm/s LVOT Peak Velocity 60.0 cm/s AV Area Cont Eq vti 1.1 cm squared AV Area Cont Eq pk 1.3 cm squared MV Peak Velocity 51.0 cm/s MV Area PHT 2.6 cm squared Mitral E to A Ratio 0.8 TR Peak Velocity 216.0 cm/s TR Peak Gradient 18.7 mmHg TV Peak E Velocity 32.0 cm/s PV Peak Velocity 66.0 cm/s FINDINGS Left Ventricle Normal left ventricular cavity size. Moderate septal hypertrophy with no left ventricular outflow tract obstruction. Normal global left ventricular systolic function, EF 55%. Hypokinesis of the basal inferolateral wall segment. Indeterminate diastolic function due to atrial fibrillation. Right Ventricle Moderately increased right ventricular size. Mildly decreased right ventricular systolic function. Normal right ventricular systolic pressure. Right Atrium Normal right atrial size. Left Atrium Normal left atrial size. IA Septum Mild lipomatous hypetrophy of the atrial septum. Mitral Valve Normal mitral valve structure. No mitral valve stenosis or regurgitation. Aortic Valve Aortic valve not well visualized but atleast mildly thickened leaflets. No aortic valve stenosis or regurgitation. Tricuspid Valve Normal tricuspid valve structure. Trace regurgitation. Pulmonic Valve Normal pulmonic valve structure. Trace regurgitation. Pericardium Small pericardial effusion with fibrin inside the pericardial space along the right atrium and right ventricle. No right atrial or right ventricular collapse to suggest pericardial tamponade. Aorta Normal diameter of the aortic root and ascending thoracic aorta. IVC Mildly dilated IVC with less than 50% collapse on the ventrilator. CONCLUSIONS 1. Normal left ventricular cavity size. Normal global left ventricular systolic function, EF 55%. Hypokinesis of the basal inferolateral wall segment. 2. Moderate septal hypertrophy with no left ventricular outflow tract obstruction. 3. Aortic valve not well visualized but atleast mildly thickened leaflets. No aortic valve stenosis or regurgitation. 4. Small pericardial effusion with fibrin inside the pericardial space along the right atrium and right ventricle. No right atrial or right ventricular collapse to suggest pericardial tamponade. 5. Moderately increased right ventricular size. Mildly decreased right ventricular systolic function. Normal right ventricular systolic pressure. Seun Aparicio MD, FACC (Electronically Signed) Final Date: 22 August 2025 23:20 S
--- NOTE | 2025-08-22 17:49 | PC.NURSE ---
Abraham WAX PATTERN REPAIRER gave order for Dopamine drip persistently less than 40
[2025-08-22 18:24] LABS: Troponin 5 6HR 106.3 ng/L (0-15); Troponin 5 6HR Delta 24.3 ng/L (0-12)
--- NOTE | 2025-08-22 18:59 | P.CONIM_ITS ---
<Statement entered by Seun Aparicio MD - 08/22/25 19:55> Patient was evaluated and cared for in conjunction with an advanced practice practitioner. I personally examined the patient and reviewed the chart and all pertinent data including imaging, telemetry, and laboratory results. I discussed the patient in detail with the advanced practice practitioner. Please see their note for complete consult note, testing results and agreed upon plan of care for the patient. Also, will assess ventricular function with echo. Keep potassium level about 4.0 and magnesium level 2.0 or above. No ventricular tachyarrythmias event on review of telemetry. Patient no longer shivering on my exam and bear hugger warming him well. Temperature slowly normalizing. Providers/Reason For Consult 2 Consulting Physician/Specialty*: Dr. Aparicio, cardiology Reason for Consult*: Unresponsive, elevated troponin Attending Physician: Jadon Weathers MD Primary Care Provider: HENRI Garza History of Present Illness History of Present Illness Edil Fine is a 89 year old male with past medical history of hypertension, nicotine use, hyperlipidemia. He was brought in by EMS today unresponsive, last known well was 3 days ago. No family is available, [place]. He was noted to be very hypothermic, temperature 83.6 ?F by rectal. He is under a warming blanket now, was started on BiPAP. Review of labs: WBC 7, hemoglobin 13.2, potassium 2.5, BUN 43, creatinine 2.2, lactic acid 9.8, lipase 382, magnesium 1.8, AST 187, ALT 50, CK7 440. Troponin series: 82?>72?>106. CT of the head negative for hemorrhage or mass. CT of the chest shows a large mass around the IVC at the level of the right renal artery and vein with possible occlusion. More masses noted in the mesenteric and retroperitoneal region, additional right inguinal mass along the spermatic cord into the scrotum. Differential including lymphoma, testicular lymphoma, testicular germ cell tumor with metastatic disease and sarcoma. In the emergency room he had a fixed gaze to the right and was not responsive. At the time of my exam, he was looking straight ahead, would respond with a grunt or moan when touched, he is shivering. Medications/Allergies Home Medications ?Medication ?Instructions ?Recorded ?Confirmed ?Last Taken ?Type aspirin 81 mg tablet,delayed 81 mg PO DAILY 05/14/20 1 10/22/24 Unknown History release docusate sodium 100 mg capsule 100 mg PO BID #60 caps 02/23/25 08/22/25 Unknown Rx (Colace) cholecalciferol (vitamin D3) 125 125 mcg PO DAILY #30 caps 05/18/25 08/22/25 Unknown Rx mcg (5,000 unit) capsule cyanocobalamin (vitamin B-12) 1,000 mcg IM .every12 we eks #1 mL 05/18/25 08/22/25 Unknown Rx 1,000 mcg/mL injection solution fenofibrate nanocrystallized 145 145 mg PO DAILY #90 t abs 05/18/25 08/22/25 Unknown Rx mg tablet (Tricor) lisinopril 10 mg tablet 10 mg PO DAILY #90 tabs 05/0508/22/25 Unknown Rx metoprolol tartrate 25 mg tablet 25 mg PO BID #180 tab s 05/18/25 08/22/25 Unknown Rx syringe with needle 3 mL 22 gauge #1 ea 05/18/2508/22 Unknown Rx x 1 Allergies Allergy/AdvReac Type Severity Reaction Status Date / Time No Known Allergies Allergy Verified 05/18/25 08:19 Current Medications Generic Name Dose Route Start Last Admin Trade Name Freq PRN Reason Stop Dose Admin Norepinephrine Bitartrate 4 mg in 250 mls @ 0 mls/hr 08/22/25 12:45 08/22/25 18:47 Levophed IV 4 mcg/min .Q0M JEROME 15 mls/hr Protocol Titration Per Protocol AMIODARONE HCL/D5W 900 mg in 500 mls @ 0 mls/hr 08/22/25 15:15 08/22/25 18:47 Amiodarone 900 Mg/500 Ml-D5w IV 0 mg/min .Q0M JEROME 0 mls/hr Protocol Titration Per Protocol Sodium Chloride 1,000 mls @ 125 mls/hr 08/22/25 16:00 08/22/25 18:09 Sodium Chloride 0.45% IV 125 mls/hr .Q8H JEROME Administration PFSH Acute 2 PFSH: Medical History Personal history of nicotine dependence Mixed hyperlipidemia Essential hypertension Surgical History History of prostatectomy History of hernia repair Family History Grandfather Cancer Throat Social History Smoking and tobacco/nicotine status: current every day tobacco/nicotine user Second hand smoke exposure: Yes Alcohol intake: unknown Substance/Drug Use: unknown Adopted: No Caregiver/support person: No Lives independently: Yes Household members: spouse Housing: House Marital status: Current occupational status: retired Do you think of yourself as: Straight/Heterosexual Current gender identity: Male Vitals/I&O/Wt Last Vital Signs Temp 83.6 F L 08/22/25 15:42 Pulse 50 L 08/22/25 18:00 Resp 23 H 08/22/25 18:00 BP 119/61 08/22/25 18:00 Pulse Ox 100 08/22/25 18:00 O2 Del Method BiPAP 08/22/25 16:43 FiO2 50 08/22/25 16:00 08/22/25 08/22/25 08/22/25 06:59 14:59 22:59 Intake Total 3435 / 3798.171 363.171 / 3798.171 Balance 3435 / 3798.171 363.171 / 3798.171 Weight last 48 hrs Weight 211 lb 10.3 oz Weight 161 lb Physical Exam 2 Const: EXAM LIMITATIONS: altered mental status ORIENTATION/CONSCIOUSNESS: Y es awake Chest: COMMONS NORMALS: normal inspection of the chest Resp: COMMON NORMALS: clear to auscultation bilaterally AUSCULTATION: clear to auscultation bilaterally Cardio: COMMON NORMALS: S1 normal heart sound present and S2 normal heart sound present RATE: bradycardic RHYTHM: abnormal rhythm irregularly irregular HEART SOUNDS: S1 normal heart sound present, S2 normal heart sound present and no murmurs GI: INSPECTION: Yes normal to inspection PALPATION: Yes Tenderness to palpation present (GI) Details: RLQ Extremity: OTHER: Skin over the anterior knees purple with abrasion Neuro: SENSORIUM/ORIENTATION: Yes Orientation impaired SPEECH: Other neuro speech findings (Unable to assess due to presence of BiPAP mask) PUPIL EXAM: Sluggish: bilateral (Left pupil 6, right pupil 4) Data 08/22/25:49 08/22/25 11:49 A&P Assessment and plan 1. Atrial fibrillation with slow ventricular response: 2. Essential hypertension: 3. Acute metabolic encephalopathy: 4. Acute hypoxic respiratory failure: 5. Acute renal failure due to rhabdomyolysis: Plan: He is shivering from hypothermia which makes his EKG have significant artifact. During the times when he is still, I note irregular rhythm, sometimes with heart rate in the 30s, some beats appear junctional at times. He yelled out whenever I touched his right lower abdomen, it is soft. Due to the circumstances of unresponsiveness and fall at home will hold off anticoagulation for 24 hours to determine the risk and benefit of use. He is on Levophed infusion currently which is maintaining good blood pressure. If he becomes bradycardic less than 40 bpm sustained, can initiate dopamine infusion titratable to keep heart rate above 40. He currently is on amiodarone 1 mg/min. He is at risk for rewarming arrhythmia if warmed too quickly but is bradycardic now, will reduce amiodarone to 0.5 mg/min. Further workup will be based on progress overnight. PDMP PDMP Reviewed: Not Reviewed Coding Level of Care Code Acute Code for Chg Fwd Diagnoses Atrial fibrillation with slow ventricular response I48.91 Essential hypertension I10 Acute metabolic encephalopathy G93.41 Acute hypoxic respiratory failure J96.01 Acute renal failure due to rhabdomyolysis N17.9; M62.82
--- NOTE | 2025-08-22 19:05 | PC.NURSE ---
patient in medical wrist restraints when arrived from ED
[2025-08-22 19:33] LABS: Anion Gap 20.5 (5-19); Blood Urea Nitrogen 44 mg/dL (8-23); Calcium 12.6 mg/dL (8.5-10.5); Carbon Dioxide 21 mmol/L (22-29); Chloride 110 mmol/L (98-107); Glucose 121 mg/dL (65-115); Osmolality Calculated 320 mOsm/kg (285-295); Sodium 149 mmol/L (136-145)
[2025-08-22 19:41] LABS: Lactic Sepsis W/Reflex 5.6 mmol/L (0.5-2.2); Potassium 2.5 mmol/L (3.5-5.1)
--- NOTE | 2025-08-22 20:06 | ECG_ITS ---
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 Measurements Intervals [place] Rate: 54 P: 0 AR: 0 QRS: 75 QRSD: 125 T: 66 QT: 471 QTc: 448 Interpretive Statements ATRIAL FIBRILLATION WITH SLOW VENTRICULAR RESPONSE POSSIBLE RIGHT VENTRICULAR CONDUCTION DELAY [RSR (QR) IN V1/V2] NONSPECIFIC ST & T-WAVE ABNORMALITY, CONSIDER ISCHEMIA ABNORMAL RHYTHM ECG Compared to ECG 08/22/2025 16:33:27 TRACING ARTIFACT DECREASED Electronically Signed On 08-27-2025 16:49:53 [employer] PIPING DESIGNER by Seun Aparicio M.D. [email or web address] [id number]
[2025-08-22] MEDS: lidocaine 1% 5 ML in potassium chloride premix 100 ML 50 ML IV ×2 (20:25→22:23)
[2025-08-22] MEDS: DOPamine drip 400 MG/250 ML PREMIX 18 MG IV (22:00)
--- NOTE | 2025-08-22 22:00 | ECG_ITS ---
[employer] Test Date: 2025-08-22 Pat Name: Edil Fine Department: Room: ICU12 Gender: Male Integration Consultant: : 1935 Requested By: Jadon Virk Order Number: [id number] Cagle MD: Seun Aparicio M.D. Measurements Intervals [place] Rate: 58 P: 0 IN: 0 QRS: 67 QRSD: 126 T: 72 QT: 476 QTc: 468 Interpretive Statements TECHNICALLY POOR TRACING ATRIAL FIBRILLATION WITH SLOW VENTRICULAR RESPONSE RIGHT BUNDLE BRANCH BLOCK [120+ ms QRS DURATION, UPRIGHT V1, 40+ ms S IN I/aVL/V4/V5/V6] Compared to ECG 08/22/2025 20:06:56 TRACING ARTIFACT NOW PRESENT LIMITING INTERPRETATION Electronically Signed On 08-27-2025 16:45:29 EKG TECH by Seun Aparicio M.D. [email or web address] [email or web address]
[2025-08-22 23:20] LABS: Reflex Lactate Order REFLEX LACTIC ORDERD
[2025-08-22] MEDS: norepinephrine 4 MG/250 ML BAG 7.5 MG IV (23:21)
[2025-08-23] VITALS (103 sets, daily range): BP systolic 91–207; BP diastolic 45–123; PULSE 55–96; RESP 14–31; TEMP 36.7–37.3; O2SAT 93–100
--- NOTE | 2025-08-23 | P.PNCC_ITS ---
Critical Care Event Note The high probability of a clinically significant, sudden or life threatening deterioration of the patient's [] system(s) required my full and direct attention, intervention and personal management. The critical care time is as shown. This time is in addition to time spent performing any reported procedures but includes the following: [x] Data and vital sign review and interpretation [x] Patient assessment, examination and intervention [x] Documentation [x] Medication orders and management Critical Care Time Code activated: No Critical Care Time (min): 35 Additional information about critical care time: - Nursing staff report that patient is in severe refractory shock - Patient was examined - He is alert oriented x 0, GCS score is 9, is a carotid pulse, blood pressure difficult to obtain, even manually - He is on dopamine drip, Levophed placed on 10, order for vasopressin placed, bicarb push, hydrocortisone push, vancomycin, Zosyn, bicarb drip, albumin, fluid bolus - ABG ordered, CBC, CMP, repeat lactic acid - Currently he is on 40% BiPAP, heart rates in the 90s, on amiodarone drip for V-fib, on the monitor it looks more like atrial fibrillation - On examination DP PT pulses are significantly diminished, cap refill greater than 3 seconds, mottling up to the level of the abdomen, - Lungs diffuse wheezing and crackles in all lung barnes - Moderate respiratory distress, nasal flaring, intercostal retractions, suprasternal retractions, tachypnea, tachycardia - Abdomen soft, slightly distended, diffuse tenderness, no guarding, no rebound, rigidity - Nursing staff have not been able to get a Donis catheter, has a right testicular mass 1. 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 Mass measures 4.7 x 5.3 x 7.0 cm. Encasement and possible occlusion of the RIGHT renal artery and vein although there is no enlargement of the kidney. 2. Additional mesenteric and retroperitoneal masses identified. 3. The largest additional mass in the RIGHT inguinal region extends inferiorly along the spermatic cord into the scrotum. There is marked scrotal wall thickening. Possible testicular mass. 4. Differential of the above findings includes lymphoma and testicular lymphoma. 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 Sarcoma should also be considered. 5. Donis catheter is present but the balloon is distended within the urethra. Urinary bladder remains dilated. Urethra is being slightly displaced to the LEFT by the testicular and scrotal mass. 6. Cholelithiasis without evidence for acute cholecystitis. Cardiac echo CONCLUSIONS 1. Normal left ventricular cavity size. Normal global left ventricular systolic function, EF 55%. Hypokinesis of the basal inferolateral wall segment. 2. Moderate septal hypertrophy with no left ventricular outflow tract obstruction. 3. Aortic valve not well visualized but atleast mildly thickened leaflets. No aortic valve stenosis or regurgitation. 4. Small pericardial effusion with fibrin inside the pericardial space along the right atrium and right ventricle. No right atrial or right ventricular collapse to suggest pericardial tamponade. 5. Moderately increased right ventricular size. Mildly decreased right ventricular systolic function. Normal right ventricular systolic pressure. -Patient is in acute hypoxic respiratory failure, with acute encephalopathy, with multifactorial and refractory shock requiring 3 pressors, component of sepsis and septic shock, source concerns for pneumonia given respiratory examination, also intra-abdominal source increased anion gap metabolic acidosis, lactic acidosis also with intra-abdominal malignancy encasing IVC - I was able to reach patient's 2 daughters - Brandi - Both daughters are driving to [place] from [place], they should be here [place] at 4 AM - Discussed with Devin's current condition - Critically ill, prognosis poor, and refractory shock requiring 3 pressors, acute respiratory failure, concerns for sepsis, with evidence of intra-abdominal malignancy - Discussed options - Continue medical interventions, giving gland time, considering aggressive interventions of intubation, he potentially might require CPR, - However patient's daughter tells me that he would never want to be resuscitated, he would not want to be intubated - Patient's daughter both unanimously told me that they want Devin to be DNR, they do not want him to undergo CPR, or defibrillation, they do not want to have aggressive interventions, they do not want him to be intubated as this was not his wishes - They tell me that they do not want Devin to suffer, if the likelihood of meaningful recovery is unlikely or if he starts to suffer than they want him to be just kept comfortable and from for us to ease his pain is his suffering - They are trying their best to come and see him before he passes away - Discussed with him that given his critical status there is a high likelihood o f him passing away before they make it to [place] - But I will do my best to stabilize him however he has a high risk of passing away - Discussed the risk and benefits of DNR/DNI, they voiced understanding, all questions are, agreed to proceed - Discussed risks and benefits of all options, they have understanding, all questions answered for now they want to try medical interventions, however if his condition is worsens or if the likelihood of meaningful recovery is unlikely, or if he starts suffering and they want to proceed with making Devin comfortable - They want a try to make it up to [place], to be there for his passing, but if he starts suffering then they are agreeable to make him comfortable - Discussed with nursing staff, currently on 10 of Levophed, dopamine, vasopressin, IV fluids, albumin, hydrocortisone Coding Level of Care Code Acute Code for [facility] Fwd
[2025-08-23] MEDS: albumin 50 G/200 ML BAG 60 G IV (00:06)
[2025-08-23] MEDS: hydrocortisone 100 mg/2 mL SDV IVP (00:07)
[2025-08-23] MEDS: lidocaine 1% 5 ML in potassium chloride premix 100 ML 50 ML IV ×2 (00:12→03:12)
[2025-08-23 00:14] LABS: Hematocrit 39.0 % (37-53); Hemoglobin 13.70 g/dL (11.27-16.99); Mean Corpuscular HGB Conc 35.1 g/dL (30-55); Mean Corpuscular Hemoglobin 32.8 pg (27-33); Mean Corpuscular Volume 93.3 fl (82-101); Nucleated Red Blood Cells % 0.1 %; Platelet Count 185 10^3/cmm (157-399); Red Blood Count 4.18 10^6/uL (3.85-5.65); White Blood Count 13.94 10^3/uL (3.29-11.43)
[2025-08-23 00:18] LABS: Alanine Aminotransferase 76 U/L (0-41); Albumin Level 3.4 g/dL (3.5-5.2); Alkaline Phosphatase 53 U/L (40-130); Anion Gap 19.7 (5-19); Aspartate Amino Transferase 375 U/L (0-40); Blood Urea Nitrogen 43 mg/dL (8-23); Calcium 13.0 mg/dL (8.5-10.5); Carbon Dioxide 22 mmol/L (22-29); Chloride 110 mmol/L (98-107); Globulin 3.2 g/dL (1.3-4.6); Glucose 80 mg/dL (65-115); Osmolality Calculated 318 mOsm/kg (285-295); Sodium 149 mmol/L (136-145); Total Protein 6.6 g/dL (6.6-8.7)
[2025-08-23 00:21] LABS: Lactic Acid level (Lactate) 5.0 mmol/L (0.5-2.2); Potassium 2.7 mmol/L (3.5-5.1)
[2025-08-23] MEDS: piperacillin-tazobactam 3.375 GM in sodium chloride 0.9% (plus) 50 ML IV ×4 (00:54→23:55)
[2025-08-23 03:05] LABS: ABG PCO2 34.8 mmHg (35-45); ABG PH Result 7.40 (7.35-7.45); Alveolar-Arterial Oxygen Gradi 5.6 mmHg (5-10); Arterial Blood Gas Hematocrit 37.7 % (42-52); Blood Gas Allen Test Pos; Blood Gas Operator Identificat JDB; Blood Gas Sample Site Radial, right; Blood Gas Sample Type Arterial; Carboxyhemoglobin 0.4 %THgb (0.4-20.1); Glucose Level-ABG 95.0 mg/dL (70-115); HCO3 ABG 21.6 mmol/L (22-26); Ionized Calcium Level - ABG 1.6 mmol/L (1.1-1.4); Methemoglobin 0.6 % (0.4-1.5); Oxygen Saturation ABG > 99.1; PO2 ABG 195.0 mmHg (80.0-100.0); PO2 FiO2 Ratio Arterial Blood 487; Potassium Level - ABG 2.5 mmol/L (3.5-5.0); Sodium Level - ABG 151.0 mmol/L (131-143)
[2025-08-23] MEDS: morphine 4 mg/mL SDV 1 mL 2 MG IVP ×4 (03:45→22:49)
[2025-08-23] MEDS: albumin 25 G/100 ML BAG 60 G IV ×3 (04:22→20:05)
[2025-08-23 05:50] LABS: Alanine Aminotransferase 59 U/L (0-41); Albumin Level 4.0 g/dL (3.5-5.2); Alkaline Phosphatase 35 U/L (40-130); Blood Urea Nitrogen 40 mg/dL (8-23); Calcium 12.2 mg/dL (8.5-10.5); Carbon Dioxide 22 mmol/L (22-29); Chloride 111 mmol/L (98-107); Globulin 2.4 g/dL (1.3-4.6); Glucose 108 mg/dL (65-115); Magnesium 1.5 mg/dL (1.7-2.3); Osmolality Calculated 320 mOsm/kg (285-295); Sodium 150 mmol/L (136-145); Total Protein 6.4 g/dL (6.6-8.7)
[2025-08-23 05:53] LABS: Anion Gap 20.4 (5-19); Aspartate Amino Transferase 293 U/L (0-40); Potassium 3.4 mmol/L (3.5-5.1)
[2025-08-23] MEDS: DOPamine drip 400 MG/250 ML PREMIX 27 MG IV (06:40)
[2025-08-23] MEDS: magnesium sulfate premix 2 GM/50 ML PIGGYBACK IV (08:13)
--- NOTE | 2025-08-23 08:57 | PC.NURSE ---
Dr. Weathers gave v.o. to start 1/2 NS at 100 ml/hr once bicarb bag infusing is finished
--- NOTE | 2025-08-23 09:16 | P.PN_ITS ---
Subjective 2 Subjective: Patient is seen today in the company of the family members: 2 daughter from [place] and a step-son from [place]. He was reported to have some severe bradycardia last night, and therefore required him to be put on a dopamine drip, after the amiodarone drip was stopped. Otherwise, he is getting more awake, and appearing more responsive to stimuli. Hemodynamically, he has also remained more stable. He continues to tolerate treatment plan so far. Vitals/I&O/Wt Last Vital Signs Temp 98.1 F 08/23/25 08:19 Pulse 70 08/23/25 06:15 Resp 28 H 08/23/25 06:15 BP 149/71 08/23/25 06:15 Pulse Ox 97 08/23/25 06:15 O2 Del Method Nasal Cannula 08/23/25 06:15 O2 Flow Rate 3 08/23/25 06:15 FiO2 40 08/22/25 23:54 08/22/25 08/23/25 08/23/25 22:59 06:59 14:59 Intake Total 639.644 / 4074.644 2473.857 / 6548.501 Output Total Balance 638.644 / 4073.644 2473.857 / 6547.501 Weight last 48 hrs Weight 93.44 kg Weight 96 kg Weight 73.028 kg Physical Exam 2 Narrative: General: Mentally altered, but responsive to stimuli. Making incomprehensible sentences. Otherwise, no obvious respiratory distress. Chest/Resp: Bilateral equal air entry; chest clinically clear. CVS: Rhythm: Regular heart rate and rhythm. No obvious murmurs appreciated. GI: Soft and non-tender abdomen. No obvious organomegaly. Extremities: Bilateral equal pulses. No obvious pitting pedal edema. Skin: Still dry but remarkably improved dry mucous membranes. No new rashes or skin lesions Data 08/23/25 10:14 08/23/25 05:05 Other Labs: Abnormal lab results 08/22/25 08/22/25 08/22/25 Range/Units 18:48 23:42 23:53 WBC 13.94 H (3.29-11.43) 10^3/uL MPV 11.6 H (7.4-10.4) fL Neut # (Auto) 10.86 H (1.8-7.7) 10^3/uL [place] # (Auto) 1.9 H (0.2-0.9) 10^3/uL Sodium 149 H 149 H (131-143) mmol/L Potassium 2.5 L* 2.7 L* (3.5-5.0) mmol/L Glucose 121 H (70-115) mg/dL Ionized Calcium (1.1-1.4) mmol/L Chloride 110 H 110 H (98-107) mmol/L Carbon Dioxide 21 L (22-29) mmol/L Anion Gap 20.5 H 19.7 H (5-19) BUN 44 H 43 H (8-23) mg/dL Creatinine 1.9 H 1.9 H (0.7-1.2) mg/dL POC Glucose 151 H (70-110) mg/dL Calculated Osmolality 320 H 318 H (285-295) mOsm/kg Lactic Acid 5.6 H* (0.5-2.2) mmol/L Lactic Acid (Sepsis) 5.0 H* (0.5-2.2) mmol/L Calcium 12.6 H 13.0 H (8.5-10.5) mg/dL Phosphorus (2.5-4.5) mg/dL Magnesium (1.7-2.3) mg/dL Total Bilirubin 2.0 H (0.15-1.2) mg/dL AST 375 H (0-40) U/L ALT 76 H (0-41) U/L 08/23/25 08/23/25 Range/Units 00:00 05:05 ABG pCO2 34.8 L (35-45) mmHg ABG pO2 195.0 H (80.0-100.0) mmHg ABG HCO3 21.6 L (22-26) mmol/L ABG Base Excess -2.6 L (-2.0-2.0) mmol/L Hematocrit 37.7 L (42-52) % Total Hemoglobin 12.3 L (14-18) g/dL Sodium 151.0 H 150 H (131-143) mmol/L Potassium 2.5 L 3.4 L (3.5-5.0) mmol/L Glucose (70-115) mg/dL Ionized Calcium 1.6 H (1.1-1.4) mmol/L Chloride 111 H (98-107) mmol/L Carbon Dioxide Anion Gap 20.4 H (5-19) BUN 40 H (8-23) mg/dL Creatinine 1.7 H (0.7-1.2) mg/dL POC Glucose (70-110) mg/dL Calculated Osmolality 320 H (285-295) mOsm/kg Calcium 12.2 H (8.5-10.5) mg/dL Phosphorus 2.1 L (2.5-4.5) mg/dL Magnesium 1.5 L (1.7-2.3) mg/dL Total Bilirubin 2.1 H (0.15-1.2) mg/dL AST 293 H (0-40) U/L ALT 59 H (0-41) U/L Alkaline Phosphatase 35 L (40-130) U/L Creatine Kinase 7994 H* (39-308) U/L Total Protein 6.4 L (6.6-8.7) g/dL A&P Assessment and plan 1. Ventricular tachyarrhythmia: . 2. Acute hypoxic respiratory failure: 3. Elevated troponin: 4. Acute metabolic acidosis: 5. Acute renal failure due to rhabdomyolysis: 6. Essential hypertension: 7. Acute metabolic encephalopathy: Plan: 1. Acute unspecified tachyarrhythmia: Suspected V-fib, reported to have developed some bradycardia last night. I defer to the account executive trainee for further evaluation and treatment and advice about this. 2. Acute metabolic encephalopathy: Specific cause of patient's loss of consciousness at home unclear. Continue to monitor and watch closely. 3. Acute renal failure due to rhabdomyolysis: This is resolving gradually. Continue cautious IV rehydration, and monitoring of kidney function and CPK. 4. Acute metabolic acidosis: Apparently resolved at this time. Likely due to #3 above. 5. Right scrotal mass: This will need apparent tissue diagnosis; but this is not an urgent matter. This can further be explored when the current acute problems are controlled or resolved. Outpatient follow-up with an urologist or oncologist may be warranted in the long run. PDMP PDMP Reviewed: Not Reviewed Attestations 2 Medical Necessity Statement*: States severity sick patient with acute metabolic encephalopathy from acute renal failure/azotemia from rhabdomyolysis. Has associated right scrotal mass, in the face of other comorbidities. Patient likely to require another continued stay in the ICU, and thereafter estimated extra 2-3 night stay on the medical floor after downgrade from the ICU. See assessment and plan above for more details. Coding Level of Care Code 51171 Diagnoses Ventricular tachyarrhythmia I47.20 Acute hypoxic respiratory failure J96.01 Elevated troponin R79.89 Acute metabolic acidosis E87.21 Acute renal failure due to rhabdomyolysis N17.9; M62.82 Essential hypertension I10 Acute metabolic encephalopathy G93.41
--- NOTE | 2025-08-23 10:11 | P.PN_ITS ---
<Statement entered by Seun Aparicio MD - 08/23/25 17:51> Patient was evaluated and cared for in conjunction with an advanced practice practitioner. I personally saw the patient and reviewed the chart and all pertinent data. I discussed the patient in detail with the advanced practice practitioner. Please see their note for complete assessment and agreed upon plan of care for the patient. Subjective 2 Subjective: He has improved overnight, temperature has been warmed back to normal, is off of BiPAP now. He is grunting and sometimes conversant to questions. Echocardiogram revealed LVEF 55%, small pericardial effusion, no evidence of tamponade. He is in sinus rhythm with ventricular bigeminy, on dopamine infusion at 7.5 mcg/min and bicarb drip. CK increased to 7994. Creatinine 1.7. Magnesium 1.5, has been replaced. Vitals/I&O/Wt Last Vital Signs Temp 98.1 F 08/23/25 08:19 Pulse 70 08/23/25 06:15 Resp 28 H 08/23/25 06:15 BP 149/71 08/23/25 06:15 Pulse Ox 97 08/23/25 06:15 O2 Del Method Nasal Cannula 08/23/25 06:15 O2 Flow Rate 3 08/23/25 06:15 FiO2 40 08/22/25 23:54 08/22/25 08/23/25 08/23/25 22:59 06:59 14:59 Intake Total 639.644 / 6548.501 2473.857 / 6548.501 Output Total Balance 638.644 / 6547.501 2473.857 / 6547.501 Weight last 48 hrs Weight 206 lb Weight 211 lb 10.3 oz Weight 161 lb Physical Exam 2 Const: COMMON NORMALS: no acute distress GENERAL APPEARANCE: cooperative and comfortable ORIENTATION/CONSCIOUSNESS: Yes awake and Yes oriented to person Chest: COMMONS NORMALS: normal inspection of the chest and normal palpation of entire chest wall CHEST: Yes Symmetrical chest wall rise Resp: COMMON NORMALS: normal respiratory effort, No retractions, No use of accessory muscles and clear to auscultation bilaterally EFFORT & INSPECTION: Yes symmetric chest movement AUSCULTATION: clear to auscultation bilaterally Cardio: COMMON NORMALS: regular rate, S1 normal heart sound present, S2 normal heart sound present, No gallops present (Cardio), No clicks present (Cardio), No murmurs present (Cardio) and No rub (Cardio) RATE: regular rate RHYTHM: a bnormal rhythm with ectopic beats HEART SOUNDS: S1 normal heart sound present and S2 normal heart sound present PERIPHERAL PULSES: radial pulses present Extremity: COMMON NORMALS: no pedal edema Neuro: COMMON NORMALS: moves all extremities SENSORIUM/ORIENTATION: Yes oriented to person Data 08/23/25 10:14 08/23/25 05:05 A&P Assessment and plan 1. Atrial fibrillation with slow ventricular response: 2. Elevated troponin: 3. Mixed hyperlipidemia: 4. Essential hypertension: 5. Acute renal failure due to rhabdomyolysis: Plan: He appears to be improving, family has been present intermittently through the day. Will attempt to wean dopamine infusion to reduce frequency of bigeminy, goal is to keep heart rate above 40 bpm. Mass around the IVC and abdomen has not been discussed with family as far as I am aware. PDMP PDMP Reviewed: Not Reviewed Attestations 2 Medical Necessity Statement*: Weaning dopamine Coding Level of Care Code Acute Code for [facility] Fwd Diagnoses Atrial fibrillation with slow ventricular response I48.91 Elevated troponin R79.89 Mixed hyperlipidemia E78.2 Essential hypertension I10 Acute renal failure due to rhabdomyolysis N17.9; M62.82
--- NOTE | 2025-08-23 10:39 | ECG_ITS ---
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 Measurements Intervals Smoot Rate: 80 P: 0 NV: 0 QRS: 38 QRSD: 125 T: 14 QT: 433 QTc: 499 Interpretive Statements SINUS RHYTHM WITH PVCs in a bigeminal pattern RIGHT BUNDLE BRANCH BLOCK [120+ ms QRS DURATION, UPRIGHT V1, 40+ ms S IN I/aVL/V4/V5/V6] Compared to ECG 08/22/2025 22:06:53 Atrial fibrillation no longer present T-wave abnormality no longer present Possible ischemia no longer present Electronically Signed On 08-25-2025 19:54:16 FORTUNE TELLER by Sanju Fermin M.D. [email or web address] [id number]
[2025-08-23 10:47] LABS: Hematocrit 32.2 % (37-53); Hemoglobin 10.90 g/dL (11.27-16.99); Mean Corpuscular HGB Conc 33.9 g/dL (30-55); Mean Corpuscular Hemoglobin 32.8 pg (27-33); Mean Corpuscular Volume 97.0 fl (82-101); Nucleated Red Blood Cells % 0.2 %; Platelet Count 124 10^3/cmm (157-399); Red Blood Count 3.32 10^6/uL (3.85-5.65); White Blood Count 10.64 10^3/uL (3.29-11.43)
[2025-08-23] MEDS: DOPamine drip 400 MG/250 ML PREMIX 18 MG IV (16:30)
[2025-08-24] VITALS (61 sets, daily range): BP systolic 79–133; BP diastolic 43–91; PULSE 62–105; RESP 16–33; TEMP 37.4–37.7; O2SAT 88–100
[2025-08-24] MEDS: DOPamine drip 400 MG/250 ML PREMIX 18 MG IV ×3 (05:22→20:10)
[2025-08-24] MEDS: albumin 25 G/100 ML BAG 60 G IV ×3 (05:38→21:00)
--- NOTE | 2025-08-24 09:27 | P.PN_ITS ---
Subjective 2 Subjective: Seen again this morning in the ICU. He is still not following commands, but only able to hold conversation by saying yes and no and mumbling some incomprehensible sentences and word salads. He is still on dopamine drip. Perianesthesia Manager involved, and explained the their routine care. Medications: Medication Review Details: Dopamine is still going on. Still on IV vancomycin and Zosyn. Getting D5 at 100 cc/h since yesterday. Levophed drip and amiodarone drip has been off for more than 24 hours. Vitals/I&O/Wt Last Vital Signs Temp 100 F H 08/24/25 09:00 Pulse 80 08/24/25 09:00 Resp 27 H 08/24/25 09:00 BP 90/61 08/24/25 09:00 Pulse Ox 95 08/24/25 08:00 O2 Del Method Nasal Cannula 08/24/25 06:30 O2 Flow Rate 2 08/24/25 06:30 FiO2 40 08/22/25 23:54 08/23/25 08/24/25 08/24/25 22:59 06:59 14:59 Intake Total 2660.00 / 2710.00 281.6 / 2991.60 1100 / 1100 Balance 2660.00 / 2710.00 281.6 / 2991.60 1100 / 1100 Weight last 48 hrs Weight 97.296 kg Weight 93.44 kg Weight 96 kg Weight 73.028 kg Physical Exam 2 Narrative: General: Still significant lethargic/mental altered. No obvious respiratory distress. Neuro/Psych: Not cooperative or following command. Able to squeeze hand, anyway. Chest/Resp: ??Decreased sound on the lower right. No appreciated crackles or bronchial breath sounds. CVS: Rhythm: Regular heart rate and rhythm. No obvious murmurs appreciated. GI: Soft and non-tender abdomen. No obvious organomegaly. Extremities: Bilateral equal pulses. No obvious pitting pedal edema. Skin: Still mildly dehydrated. Data 08/23/25 10:14 08/23/25 05:05 Other Labs: No labs today yet. Last CPK level yesterday morning is 8000. Micro: Blood culture results still pending. Other data: No new imaging results for review today. New Chest x-ray just ordered. A&P Assessment and plan 1. Acute metabolic encephalopathy: 2. Acute renal failure due to rhabdomyolysis: 3. Acute hypoxic respiratory failure: 4. Cardiac dysrhythmia, unspecified: 5. Acute hypokalemia: 6. Essential hypertension: Plan: 1. Acute metabolic encephalopathy: Again, initial cause of patient's encephalopathy unknown at this time. However, he is recovering from it, currently stable, though not fully out of it. Will continue to monitor closely in the ICU at this time. If no further changes by tomorrow, we could further evaluate by getting an MRI of the brain. 2. Acute renal failure due to rhabdomyolysis: We do not have labs today. However, clinically, patient looks better hydrated, though still mild-to moderately dehydrated. I am going to increase the IV fluid rate from 100 cc/h to 125 - 150 cc/h with half saline. Hopefully, when I get the labs today, we could adjust the rate accordingly. Watch out for fluid overload. 3. Acute hypokalemia: Resolved at this time with potassium of 3.4 yesterday, compared to that of 2.7 upon admission 12 hours earlier. Again, I am waiting for today's labs. 4. Acute hypoxic respiratory failure: Upon exam, appears this right sided decreased breath sounds, which I do not appreciate well, unfortunately. This could just be positional/artifactual. Patient currently on 2 L/min of oxygen, compared to being on BiPAP on admission today. I will get a chest x-ray, just to see what else we it might reveal. 5. Cardiac dysrhythmia, unspecified: The metal die finisher notes that patient is having some A-fib with slow ventricular response. However, the nurse informing the patient had an episode of bradycardia, which is likely iatrogenic from the amiodarone drip that he was initially on, BTW. Currently, he is on dopamine drip. Echocardiogram that was done 2 days ago revealed no significant findings. I will defer to the cardiology for further advice on all this, however. 6. Right testicular mass with associated right lower abdominal mass found on CT: Like mentioned in yesterday's note, this needs further evaluation in the advised This could always be done outpatient when patient wakes up fully and discharged. PDMP PDMP Reviewed: Not Reviewed Attestations 2 Medical Necessity Statement*: Patient still having acute metabolic encephalopathy with associated ADALBERTO from severe rhabdomyolysis. Still requiring 2 L of oxygen for acute hypoxic resp failure. Would require at least 2 more midnight stay in the hospital, so as to further well- manage cardiopulmonary problems, and probably reverse the acute disease conditions. Coding Level of Care Code 69797 Diagnoses Acute metabolic encephalopathy G93.41 Acute renal failure due to rhabdomyolysis N17.9; M62.82 Acute hypoxic respiratory failure J96.01 Cardiac dysrhythmia, unspecified I49.9 Acute hypokalemia E87.6 Essential hypertension I10
[2025-08-24] MEDS: piperacillin-tazobactam 3.375 GM in sodium chloride 0.9% (plus) 50 ML IV (09:39)
--- NOTE | 2025-08-24 10:37 | P.PN_ITS ---
<Statement entered by Seun Aparicio MD - 08/24/25 18:08> Patient was evaluated and cared for in conjunction with an advanced practice practitioner. I personally saw the patient and reviewed the chart and all pertinent data. I discussed the patient in detail with the advanced practice practitioner. Please see their note for complete assessment and agreed upon plan of care for the patient. Subjective 2 Subjective: He is still grunting and not answering questions appropriately. Remains in sinus rhythm with first-degree block. His rhythm before dopamine was started was atrial fibrillation with slow ventricular response, in the upper 30s to lower 40s. Continue to try to wean dopamine if possible, to keep heart rate greater than 40 bpm. Attempts at weaning dopamine today unsuccessful. Family is discussing hospice care. He would not be a good candidate for pacemaker placement. Vitals/I&O/Wt Last Vital Signs Temp 100 F H 08/24/25 09:00 Pulse 81 08/24/25 17:00 Resp 20 H 08/24/25 17:00 BP 103/53 08/24/25 16:00 Pulse Ox 93 08/24/25 17:00 O2 Del Method Nasal Cannula 08/24/25 09:29 O2 Flow Rate 2 08/24/25 09:29 FiO2 40 08/22/25 23:54 08/24/25 08/24/25 08/24/25 06:59 14:59 22:59 Intake Total 281.6 / 2991.60 1450 / 2412.167 962.167 / 2412.167 Balance 281.6 / 2991.60 1450 / 2412.167 962.167 / 2412.167 Weight last 48 hrs Weight 214 lb 8 oz Weight 206 lb Physical Exam 2 Const: COMMON NORMALS: no acute distress GENERAL APPEARANCE: cooperative and comfortable ORIENTATION/CONSCIOUSNESS: Yes awake and Yes oriented to person Chest: COMMONS NORMALS: normal inspection of the chest and normal palpation of entire chest wall CHEST: Yes Symmetrical chest wall rise Resp: COMMON NORMALS: normal respiratory effort, No retractions and No use of accessory muscles EFFORT & INSPECTION: Yes symmetric chest movement A USCULTATION: diminished lung sounds bilateral in the lower lung barnes Cardio: COMMON NORMALS: regular rate, regular rhythm, S1 normal heart sound present, S2 normal heart sound present, No gallops present (Cardio), No clicks present (Cardio), No murmurs present (Cardio) and No rub (Cardio) RATE: r egular rate RHYTHM: regular rhythm HEART SOUNDS: S1 normal heart sound present and S2 normal heart sound present PERIPHERAL PULSES: radial pulses present Extremity: COMMON NORMALS: no pedal edema Neuro: COMMON NORMALS: moves all extremities SENSORIUM/ORIENTATION: Yes oriented to person Data 08/24/25 11:24 08/24/25 11:24 A&P Assessment and plan 1. Atrial fibrillation with slow ventricular response: 2. Elevated troponin: 3. Acute renal failure due to rhabdomyolysis: Plan: Given his age and the extent of the masses in the abdomen around the IVC, colon, inguinal region and scrotum which likely represent cancer, pacemaker placement would not be indicated. His mental status does not allow for questioning of the patient as far as his wishes, this can be discussed with his family which is present as well. If they desire hospice care we would certainly be in agreement, as he cannot be kept on dopamine indefinitely. PDMP PDMP Reviewed: Not Reviewed Attestations 2 Medical Necessity Statement*: goals of care discussion, bradycardia requiring dopamine Coding Level of Care Code Acute Code for g Fwd Diagnoses Atrial fibrillation with slow ventricular response I48.91 Elevated troponin R79.89 Acute renal failure due to rhabdomyolysis N17.9; M62.82
--- NOTE | 2025-08-24 11:08 | XR_ITS ---
WS: [id number] Exam: XR chest 1V portable [id number] Date/Time of Exam: 08/24/2025 11:08 AM Reason For Exam: Decreased breath sounds on the right on examination Comparison 08/22/2025. Lungs are fully expanded. No consolidated infiltrates. Low lung volumes secondary to limited inspiration. Cardiomediastinal silhouette is unremarkable. Bony structures are intact. XR/XR chest 1V portable [id number] IMPRESSION: 1. Limited inspiration. No acute process is suspected.
[2025-08-24 11:33] LABS: Hematocrit 33.2 % (37-53); Hemoglobin 11.10 g/dL (11.27-16.99); Mean Corpuscular HGB Conc 33.4 g/dL (30-55); Mean Corpuscular Hemoglobin 32.7 pg (27-33); Mean Corpuscular Volume 97.9 fl (82-101); Platelet Count 105 10^3/cmm (157-399); Red Blood Count 3.39 10^6/uL (3.85-5.65); White Blood Count 9.94 10^3/uL (3.29-11.43)
[2025-08-24 11:48] LABS: Slide Review Slide Review Perform
[2025-08-24 11:49] LABS: Total Cells Counted 100 (0-100)
[2025-08-24 11:52] LABS: Absolute Segmented Neutrophil 7.1 10/cmm (1.6-7.1); Band Neutrophils Absolute 1.7 10^3/cmm (0.0-1.2)
[2025-08-24 11:53] LABS: Anisocytosis Trace; Atypical Lymphs 3.0 % (0-5)
--- NOTE | 2025-08-24 11:57 | PC.NURSE ---
daughters here in room visit with pt , request to talk with social services director to start process for possible hospice at this time, dopamine gtt remains infusing at this time , dpoa paperwork copied to add to chart.
[2025-08-24 12:10] LABS: Alanine Aminotransferase 53 U/L (0-41); Albumin Level 3.6 g/dL (3.5-5.2); Alkaline Phosphatase 32 U/L (40-130); Anion Gap 20.6 (5-19); Aspartate Amino Transferase 231 U/L (0-40); Blood Urea Nitrogen 30 mg/dL (8-23); Calcium 9.6 mg/dL (8.5-10.5); Carbon Dioxide 22 mmol/L (22-29); Chloride 110 mmol/L (98-107); Globulin 2.3 g/dL (1.3-4.6); Glucose 58 mg/dL (65-115); Osmolality Calculated 314 mOsm/kg (285-295); Sodium 150 mmol/L (136-145); Total Protein 5.9 g/dL (6.6-8.7)
[2025-08-24 12:12] LABS: Potassium 2.6 mmol/L (3.5-5.1)
[2025-08-24 12:24] LABS: Magnesium 1.3 mg/dL (1.7-2.3)
[2025-08-24] MEDS: lidocaine 1% 5 ML in potassium chloride premix 100 ML 26.25 ML IV (12:38)
[2025-08-24] MEDS: morphine 4 mg/mL SDV 1 mL 2 MG IVP (12:38)
[2025-08-24] MEDS: magnesium sulfate premix 2 GM/50 ML PIGGYBACK IV (16:46)
--- NOTE | 2025-08-24 18:20 | PC.NURSE ---
family talked with doctor at length about care , question about hospice and transfer to [place] possible, voiced concern about cancer and status will discuss again in am with doctor about further care
--- NOTE | 2025-08-24 20:18 | W.PM.EVENTAC ---
Event Note Event Note: My attention was called earlier in the afternoon, will after my morning rounds and complete the patient's Progress Note today, to family members sounded they were requesting for patient to be discontinued on ongoing care. While there, they informed that there was a third family member who was on the way from [place], and will be here very soon. The two family member, who identified themselves as patient's daughters, were requesting for possible discontinuation of treatment, while also requesting for patient to be possibly transferred out of here or back to them, or be discharged with them, so that they could possibly taking back to [place]. They also had questions about patient's current cardiac status, given that he is still on dopamine drip. They also were asking questions about patient being on oxygen. In the final analysis, the recurrence and the patient has a cancer diagnosis that he may not require treatment for. I was in mention by one of the family members that patient had woken up during current hospital stay, I had told him that he did not want anything to be done about the cancer. In the course of the conversation, they clearly informed me that they have not been really communicating with patient (their father) in recent times. Neither did the patient ever tell him about the scrotal mass (which must have been there for a reasonable while now). They also voiced limited awareness of patient's other recent health conditions. This, in particular, sounds remarkably curious to me. While the family's directives were not very clear, I explained the patient has an apparent acute medical problem that is likely reversible. Based on this, given patient's apparent altered mental status, I think it is instructive that we wait for him to possibly recover from the current altered mental status, which is likely to resolve within the next 24 to 48 hours. 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 Otherwise, with patient's current altered mental status, I do not think he has capacity at this time to understand what is going on, let alone given instructions about future treatment plans about the scrotal & pelvic tumors. Shortly after this, I was informed by the medical director occupational health that family is requested for a second opinion. I do not have any problem with this, per se. Upper GI considerations, and carefully weighed all the relevant factors, I advised the family to take time to think about all the conversations, make a definite decision, articulate what they want, and let us all reconvene in the morning. I was also advised that patient has a grand-daughter is actually a physician; I do hope to speak with her tomorrow, so that she could further help advise thee rest of family on the possible intricacies and other potential implications of some of the decisions that they might be making. Otherwise, from the patient autonomic point of view, and in consideration of an unvoiced primary patient's interest, I would like the patient little bit more time to come out of the acute encephalopathy, so as to be able to coherently advise being on either what he wants. If patient is unable to come out of the current altered mental status in the next 1 to 2 days, then the authority of the person with the DURABLE POWER OF COVERAGE SPECIALIST could be invoked. Event Notes Attestations Time Spent in Patient Care: 16 - 35 minutes
--- NOTE | 2025-08-24 20:30 | PC.NURSE ---
Blood Sugar/Pupils At 194, patient's glucose level 59 with a recheck of 55. Hypoglycemia protocol followed per DEC. Glucose level recheck resulting at 85 following D10 infusion. Furthermore, patient's left pupil size 2 while right pupil size 3, both brisk and reactive. Patient remaining confused, sometimes obeying commands and at other times saying no when asked to complete task. 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 Daughters at bedside states he has had cataract surgery in possibly both eyes before. Dr. Gusman notified of blood sugars, hypoglycemia protocol, as well as pupil sizes; order received to discontinue 1/2NS and initiate D51/2NS at 150 ml/hr.
[2025-08-24] MEDS: LORazepam 2 mg/mL INJ 1 mL 1 MG IVP (20:46)
[2025-08-24] MEDS: dextrose 5%-sod chloride 0.45% 1,000 ML 150 ML IV (20:49)
[2025-08-25] VITALS (81 sets, daily range): BP systolic 73–133; BP diastolic 37–77; PULSE 57–138; RESP 15–37; TEMP 36.2–36.8; O2SAT 84–100
[2025-08-25] MEDS: dextrose 5%-sod chloride 0.45% 1,000 ML 150 ML IV (03:40)
[2025-08-25] MEDS: albumin 25 G/100 ML BAG 60 G IV (03:56)
--- NOTE | 2025-08-25 04:35 | PC.NURSE ---
Lasix Patient's respiratory effort increased with abdominal breathing noted and intermittent oxygen saturations of 89% while on 2 LNC. RT notified and bipap placed on patient. Dr. Gusman notified; orders received to discontinue D5-1/2NS, check blood glucose level Q1H, and administer 40 mg lasix IVP once.
[2025-08-25 05:24] LABS: Alanine Aminotransferase 50 U/L (0-41); Albumin Level 3.5 g/dL (3.5-5.2); Alkaline Phosphatase 32 U/L (40-130); Anion Gap 17.3 (5-19); Aspartate Amino Transferase 171 U/L (0-40); Blood Urea Nitrogen 27 mg/dL (8-23); Calcium 8.8 mg/dL (8.5-10.5); Carbon Dioxide 23 mmol/L (22-29); Chloride 108 mmol/L (98-107); Globulin 2.1 g/dL (1.3-4.6); Glucose 87 mg/dL (65-115); Osmolality Calculated 306 mOsm/kg (285-295); Sodium 146 mmol/L (136-145); Total Protein 5.6 g/dL (6.6-8.7)
[2025-08-25 05:25] LABS: Magnesium 1.5 mg/dL (1.7-2.3)
[2025-08-25 05:34] LABS: Potassium 2.3 mmol/L (3.5-5.1)
[2025-08-25] MEDS: glucagon 1 mg/mL KIT 1 mL IM (05:48)
--- NOTE | 2025-08-25 05:56 | PC.NURSE ---
Addendum entered by Sonya Prieto RN 08/25/25 06:01: Patient remaining confused, oriented to self only at this time and alert to sound; however, patient not opening eyes to any stimuli. Dr. Gusman notified of change. Original Note: Glucagon/Potassium Lasix dose held for pending potassium level. Potassium 2.3 at 0533. Furthermore, patient's glucose level [address] Gusman notified; orders received to hold lasix dose, administer a total of 80 meq KCL IV, administer 1 mg glucagon once, administer 125 ml of D10 IV once, and recheck blood glucose level 1 hour after interventions.
[2025-08-25] MEDS: lidocaine 1% 5 ML in potassium chloride premix 100 ML 52.5 ML IV ×4 (06:20→20:14)
--- NOTE | 2025-08-25 09:14 | PC.NURSE ---
Dr. Weathers came to bedside ordered CT abdomen/pelvis with contrast for distended tender abdomen, fluids per MAR and to stop krider after 40 Meq given. Family came to bedside requested a new dr take over care and told this nurse not to give any of the ordered medicine then requested RT to take off bipap. family stated we know he wouldn't want to live like this and we dont want him to suffer or go on like this anymore, we tried treating the acute things already and he's not any better
[2025-08-25] MEDS: DOPamine drip 400 MG/250 ML PREMIX 18 MG IV (09:29)
--- NOTE | 2025-08-25 09:29 | P.PN_ITS ---
Subjective 2 Subjective: Patient is seen again this morning in the ICU. He is currently on BiPAP, having been reported to have developed some difficulty breathing during the night. Also last night, patient reported to have developed some hypoglycemia, and was therefore given some dextrose infusion. Given that he also reportedly developed that difficulty breathing, and was given 1 dose of IV Lasix. Currently, he is also hypokalemic, and ordered 20 mEq x 4 = 80 mEq of IV potassium chloride. He has already gotten 40 mEq of that, and awaiting the third & 4th bag. Medications: Medication Review Details: Still on dopamine drip, at 5 mics/kg/minute. Otherwise, on other PRN medications, as well as DVT prophylaxis with Lovenox. Vitals/I&O/Wt Last Vital Signs Temp 98.3 F 08/25/25 05:15 Pulse 65 08/25/25 08:28 Resp 27 H 08/25/25 06:15 BP 101/54 08/25/25 06:15 Pulse Ox 100 08/25/25 08:28 O2 Del Method BiPAP 08/25/25 05:15 O2 Flow Rate 2 08/25/25 04:12 FiO2 40 08/25/25 08:28 08/24/25 08/25/25 08/25/25 22:59 06:59 14:59 Intake Total 1938.067 / 3388.067 1569.70 / 4957.767 Balance 1938.067 / 3388.067 1569.70 / 4957.767 Weight last 48 hrs Weight 98.5 kg Weight 97.296 kg Physical Exam 2 Narrative: General: Lethargic patient, sleepy, briskly responsive to pain. BiPAP in situ. No obvious respiratory distress. Neuro/Psych: Moderately responsive. Moves all extremities to touch and pain. Chest/Resp: Bilateral equal air entry; chest clinically clear. No significant basal crackles appreciated. CVS: Rhythm: Regular heart rate and rhythm. No obvious murmurs appreciated. GI: Generalized tenderness with moderate guarding. There appears to be some fullness on the right lower quadrant that is more appreciated today.. Extremities: Bilateral equal pulses. No apparent or new pedal edema. Skin: No obvious skin mottling or new rashes noted. Data 08/24/25 11:24 08/25/25 04:41 Other Labs: Crtn Kinase => 1453 today (vs 3100 yesterday, and 8000 as at 2 days ago). Magnesium => 1.5 today (vs 1.3 as at yesterday) Micro: Blood cultures are still pending. Otherwise, no new growth over the last [address] Abd/Pel: My impression: Ordered, and otherwise pending. A&P Assessment and plan 1. Acute metabolic encephalopathy: 2. Acute renal failure due to rhabdomyolysis: 3. Hypomagnesemia: 4. Generalized abdominal tenderness, unspecified whether rebound tenderness present: 5. Acute hypoxic respiratory failure: 6. Cardiac arrhythmia, unspecified cardiac arrhythmia type: 7. Acute hypokalemia: 8. Scrotal mass: 9. 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 Essential hypertension: Plan: 1. Acute respiratory failure with hypoxia: Patient currently on BiPAP, the primary or main cause of this uncertain at the moment. I was definitely going to look more into this, but family is requesting change in treatment modalities, and so holding further changes or orders from me. See my comments below. 2. Acute hypomagnesemia with associated acute hypokalemia + hypoglycemia: I had gone ahead and changed patient's infusion to D5 plus 20 mEq of KCl, to alternate with half saline infusion. I also ordered 2 g of IV magnesium sulfate, with intention to repeat all levels in the morning. See my comments below for more details. 3. Acute renal failure due to rhabdomyolysis: This is remarkably improving, with CPK level today more than 80% resolved. My intention is to continue cautious IV rehydration, and continue to monitor CPK and BMP daily, etc. 4. Acute metabolic encephalopathy: Apparent resolving. However, patient appears too sleepy today; not very sure about this. My initial plan is to get an ABG, so as to be sure patient is not acidotic. However, family is requesting change in treatment personnel, etc. See my comments below. 5. Generalized abdominal tenderness: Not sure what was causing this at the moment. There could be some new or ongoing acute intra-abdominal problem that needs to be elucidated and looked into. I have gone ahead to ordeedr a CT scan of the abdomen and pelvis with IV contrast. However, family at the moment is rejecting this. Again, see my comments below. 6. Scrotal mass with associated intra-abdominal mass on the lower right. As mentioned in my previous note(s), I am not really addressing this at the moment. This is definitely something that could well be followed up outpatient, after a getting a tissue diagnosis, etc., except as otherwise clearly and coherently directed by patient. 7. Unspecified dysrhythmia: This appears to be more of bradycardia, possibly iatrogenic, otherwise not specified. Continue to defer to cardiology for continued expert advice on this. 8. Essential hypertension: Patient blood pressure currently stable, though on the low side. We are holding all antihypertensives at this time. Continue to monitor closely. PDMP PDMP Reviewed: Not Reviewed Attestations 2 Medical Necessity Statement*: Patient is still actively sick, requiring continued inpatient/ICU stay. However, like mentioned yesterday, the family is requesting withdrawal of care. They made this very clear earlier this morning. At the same time, another family member, who identified herself as patient's granddaughter, had arrived this morning from [place]. Initially, I had thought that this granddaughter is a physician, whom I was looking for to further discussing patient's clinical case. But unfortunately, she is not. After due considerations, and after having interfaced with other hospital staff, including the parking regulation enforcement officer, etc., I think it may be in the interest of patient to be seen by another physician. Otherwise, from the standpoint of what I thoughtfully and carefully consider to be in the overall & over-arching patient's best interest, regardless of family's or other 3rd republican's apparent disagreement with my treatment plans, I deem it instructive to directly hear from the patient tell me coherently to stop his treatment or not. This is very important in particular view of the well-explored fact that patient has an altered mental status that is very likely temporary, and could resolve by tomorrow. However, patient could not directly and coherently, and also legally, express this wish to me t this time. This will help eliminate the possibility of a wrongful advice from family, which may not really be in line with patient's wishes. There are a couple of other treatment modalities that I was considering in addition to what I have already stated above. However, given recent development, I am compelled to handover care to another physician at this time. Please see my Event Note of 08/24/25, and other previous Notes for more detail. Having said that this, I hereby sign off, and respectfully handing over care to Dr. Dejesus, the other hospitalist currently working with me. Note: Patient's advanced directives personally seen and reviewed by me. I also confirmed the name of the DPOA, Ms Brandi Lundy, phone #[phone]. Her ID is confirmed by the RN, and copy of which is saved/stored in the patient's chart. Time Spent in Patient Care: Greater than 35 minutes Critical Care Time: The high probability of a clinically significant, sudden or life threatening deterioration of the patient's [renal, neurologic, respiratory and cardiovascular] system(s) required my full and direct attention, intervention and personal management. The critical care time is as shown. This time is in addition to time spent performing any reported procedures but includes the following: [x] Data and vital sign review and interpretation [x] Patient assessment, examination and intervention [x] Documentation [x] Medication orders and management This also includes the extended time spent in discussing with family and rest of hospital staff to get further advice and insight, as demanding by the peculiar nature of patients case and family demands. Coding Level of Care Code Acute Code for g Fwd Diagnoses Acute metabolic encephalopathy G93.41 Acute renal failure due to rhabdomyolysis N17.9; M62.82 Hypomagnesemia E83.42 Generalized abdominal tenderness, unspecified whether rebound tenderness present R10.817 Presence of rebound: not specified Acute hypoxic respiratory failure J96.01 Cardiac arrhythmia, unspecified cardiac arrhythmia type I49.9 Arrhythmia type: unspecified cardiac arrhythmia Acute hypokalemia E87.6 Scrotal mass N50.89 Other intra-abdominal and pelvic swelling, mass and lump R19.09 Essential hypertension I10
--- NOTE | 2025-08-25 09:58 | P.PN_ITS ---
<Statement entered by Seun Aparicio MD - 08/27/25 18:24> Patient was evaluated and cared for in conjunction with an advanced practice practitioner. I personally saw the patient and reviewed the chart and all pertinent data. I discussed the patient in detail with the advanced practice practitioner. Please see their note for complete assessment and agreed upon plan of care for the patient. Subjective 2 Subjective: Blood pressure hypotensive at times overnight, down to 83 systolic. Dopamine infusion continued at 5mcg/kg/min. Neuro status unchanged, word salad. Vitals/I&O/Wt Last Vital Signs Temp 98.3 F 08/25/25 05:15 Pulse 66 08/25/25 09:15 Resp 23 H 08/25/25 09:15 BP 117/70 08/25/25 09:15 Pulse Ox 94 08/25/25 09:15 O2 Del Method BiPAP 08/25/25 05:15 O2 Flow Rate 2 08/25/25 04:12 FiO2 40 08/25/25 08:28 08/24/25 08/25/25 08/25/25 22:59 06:59 14:59 Intake Total 1938.067 / 4957.767 1569.70 / 4957.767 114.4 / 114.4 Balance 1938.067 / 4957.767 1569.70 / 4957.767 114.4 / 114.4 Weight last 48 hrs Weight 217 lb 2.485 oz Weight 214 lb 8 oz Physical Exam 2 Const: COMMON NORMALS: no acute distress GENERAL APPEARANCE: comfortable ORIENTATION/CONSCIOUSNESS: Yes awake Chest: COMMONS NORMALS: normal inspection of the chest and normal palpation of entire chest wall CHEST: Yes Symmetrical chest wall rise Resp: COMMON NORMALS: normal respiratory effort, No retractions, No use of accessory muscles and clear to auscultation bilaterally EFFORT & INSPECTION: Yes symmetric chest movement AUSCULTATION: clear to auscultation bilaterally Cardio: COMMON NORMALS: regular rate, regular rhythm, S1 normal heart sound present, S2 normal heart sound present, No gallops present (Cardio), No clicks present (Cardio), No murmurs present (Cardio) and No rub (Cardio) RATE: r egular rate RHYTHM: regular rhythm HEART SOUNDS: S1 normal heart sound present and S2 normal heart sound present PERIPHERAL PULSES: radial pulses present Extremity: COMMON NORMALS: no pedal edema Data 08/24/25 11:24 08/25/25 04:41 A&P Assessment and plan 1. Atrial fibrillation with slow ventricular response: 2. Personal history of nicotine dependence: 3. Acute renal failure due to rhabdomyolysis: Plan: Blood pressure has been fluctuating at times, unable to wean dopamine without causing decompensation. Family meeting to be held today with additional physicians to determine the best plan of care for the patient. We agree with the family decision for hospice care. PDMP PDMP Reviewed: Not Reviewed Attestations 2 Medical Necessity Statement*: possible transition to hospice Coding Level of Care Code Acute Code for Chg Fwd Diagnoses Atrial fibrillation with slow ventricular response I48.91 Personal history of nicotine dependence Z87.891 Acute renal failure due to rhabdomyolysis N17.9; M62.82
--- NOTE | 2025-08-25 11:30 | PM.MISC ---
Miscellaneous Note Purpose of Documentation: Transition of care Note: Approached by risk-management team and patient's primary to take over patient's care as family is requesting for change of primary physician. As per discussion with the patient's primary Dr. Weathers, review of chart, discussion with patient's nursing team it seems he was admitted on 08/22 When he was found down at home for unknown amount of time by a wellness check. On presentation he was covered in feces, was hypothermic, was not shock, with lactic acidosis, hypokalemia, having ventricular tachyarrhythmia and altered mental status. He was started on IV fluids, Levophed and cardiology was consulted. He was started on broad-spectrum IV antibiotics along with bicarb drip. Patient gradually improved and his hemodynamics stabilized though he continued to have episode of bradycardia for which he is still on dopamine of 5. He has had episodes of hypoglycemia for which he has required dextrose infusion along with significant hypokalemia. During the course of hospitalization he was found to have significant rhabdomyolysis along with generalized abdominal tenderness. 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 There was a concern for possible testicular lymphoma versus lymphoma. Goals of care discussions were done with patient's family members were coming in from [place] with DPOA been Ms. Mendoza Parmar as per the DPOA paperwork who requested patient to be DNR/DNI. Patient's DPOA is requesting patient to be transitioned to hospice given his baseline health, multiple comorbidities, significant mass with high concern for malignancy. Per the family members patient would not have wanted any aggressive treatment or to live in the life of morbidity and would always prefer quality of life more than quantity of life. On examination Currently on dopamine of 5 with blood pressure of 110 systolic, heart rate of 80 bpm, saturating 94% on 4 L, patient wakes up to verbal stimulus but on waking up is not coherent, not able to tell me his name, his date of his address. Has significant generalized tenderness on examination of abdomen with concerns for guarding. On review of chart patient's PCP is Efrem Regalado he had last seen on 05/18/2025. As per the charting patient enjoys living alone and enjoyed going to [employer] to smoke 2-3 times a week. Plan: Risk management team involved. They confirm the DPOA paperwork. Patient daughter Ms. Mendoza Parmar if the DPOA and currently present in person. Appreciate documentation and consultation from cardiology team who suggest that patient should go ahead with hospice care given his multiple comorbidities and advanced age. Will consult neurology for further evaluation of metabolic encephalopathy to see if there is any other treatment which can be provided to the patient for improvement. Discussed the above plan in detail with family members at bedside including 2 daughters and granddaughter. 1 other daughter is the DPOA. All the questions were answered and prolonged conversation over 15 to 20 minutes. Other Coding Information Prolonged care (total time indicated above or notated here) (Gathering chart data, discussion with multiple providers, extensive discussion with patient's DPOA and family members) and Shared care
--- NOTE | 2025-08-25 11:45 | P.CONIM_ITS ---
Providers/Reason For Consult 2 Consulting Physician/Specialty*: Dr. Marylou Gutiérrez Reason for Consult*: Help with family decision making Attending Physician: Carlos Dejesus MD Primary Care Provider: Efrem Regalado, BACKUP ADMINISTRATOR-C History of Present Illness History of Present Illness Edil Fine is a 89 year old man who has fiercely maintain his independence even after his got Alzheimer's disease and moved to [place]. He has been taken care of by Efrem Regalado for more than 10 years, probably more like 20 and she moved his appointments up to every 3 months after his left to help maintain his safety. His main goal has been to smoke cigarettes and go to the [place]. His 2 daughters live in [place] and despite their in treating his he refused to move away from his home where he lives alone. They became concerned about him and talked with several of his friends from the [place] 6 days ago and those friends did a wellness check and the police came to the door. He was dressed and came to the door and I even though he did not look very well it was concluded that he was okay. The family called the police for another wellness check on 08/22 and he was found naked on the floor and unresponsive, his environment filthy and it was very cold in his house. He was hypothermic on arrival here 08/22 by EMS with fixed gaze to the right. 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 The patient has remained in a light coma since arrival. His 2 daughters drove up from [place] and his niece came from [place]. It has been clear to all of them that this is not a reversible process and that the patient should be kept comfortable. They have questioned why the patient is on a dopamine drip and being aggressively treated when he is clearly in a hopeless state. Although the hospitalist documented that the patient could not follow commands or hold a conversation, he has continued on life-saving measures including multiple antibiotics, aggressive hydration, dopamine drip. Although the family who clearly care about the patient were advocating for comfort care, the hospitalist managing took on an adversarial role and the family is quite upset over the attitude that has been projected to them. I talked with Efrem Regalado who has been the patient's care provider for many years and she indicates that the patient would not want to survive if he could not smoke many cigarettes and go to the [email or web address] by driving their every day. He has refused to move to [place] to live with family. Review of Systems 2 Narrative: The patient is unable to communicate. Normally he is alert and oriented and now he is severely encephalopathic. Medications/Allergies Home Medications ?Medication ?Instructions ?Recorded ?Confirmed ?Last Taken ?Type aspirin 81 mg tablet,delayed 81 mg PO DAILY 05/14/20 1 10/22/24 Unknown History release docusate sodium 100 mg capsule 100 mg PO BID #60 caps 02/23/25 08/22/25 Unknown Rx (Colace) cholecalciferol (vitamin D3) 125 125 mcg PO DAILY #30 caps 05/18/25 08/22/25 Unknown Rx mcg (5,000 unit) capsule cyanocobalamin (vitamin B-12) 1,000 mcg IM .every12 we eks #1 mL 05/18/25 08/22/25 Unknown Rx 1,000 mcg/mL injection solution fenofibrate nanocrystallized 145 145 mg PO DAILY #90 t abs 05/18/25 08/22/25 Unknown Rx mg tablet (Tricor) lisinopril 10 mg tablet 10 mg PO DAILY #90 tabs 05/0508/22/25 Unknown Rx metoprolol tartrate 25 mg tablet 25 mg PO BID #180 tab s 05/18/25 08/22/25 Unknown Rx syringe with needle 3 mL 22 gauge #1 ea 05/18/2508/22 Unknown Rx x 1 Allergies Allergy/AdvReac Type Severity Reaction Status Date / Time No Known Allergies Allergy Verified 05/18/25 08:19 Current Medications Generic Name Dose Route Start Last Admin Trade Name Freq PRN Reason Stop Dose Admin Enoxaparin Sodium 30 mg 08/23/25 06:00 08/25/25 05:27 Enoxaparin 30 Mg/0.3 Ml Syringe SUBCUT 30 mg Q24H JEROME Administration Dopamine HCl/Dextrose 400 mg in 250 mls @ 18 mls/hr 08/22/25 17:45 08/25/25 09:29 Intropin Drip IV 5 mcg/kg/min CONT JEROME 18 mls/hr Protocol Administration 5 MCG/KG/MIN Lidocaine HCl 5 ml/ Potassium 105 mls @ 52.5 mls/hr 08/25/25 05:45 08/25/25 06:20 Chloride IV 08/25/25 13:44 52.5 mls/hr Q2H JERMOE Administration Lorazepam 1 mg 08/23/25 00:19 08/24/25 20:46 Lorazepam 2 Mg/Ml Inj 1 Ml IVP 1 mg Q8H PRN Administration ANXIETY Morphine Sulfate 2 mg 08/23/25 00:19 08/24/25 12:38 Morphine 4 Mg/Ml Sdv 1 Ml IVP 2 mg Q4H PRN Administration SEVERE PAIN PFSH Acute 2 PFSH: Medical History Personal history of nicotine dependence Mixed hyperlipidemia Essential hypertension Surgical History History of prostatectomy History of hernia repair Family History Grandfather Cancer Throat Social History Smoking and tobacco/nicotine status: current every day tobacco/nicotine user Second hand smoke exposure: Yes Alcohol intake: unknown Substance/Drug Use: unknown Adopted: No Caregiver/support person: No Lives independently: Yes Household members: spouse Housing: House Marital status: Current occupational status: retired Do you think of yourself as: Straight/Heterosexual Current gender identity: Male Vitals/I&O/Wt Last Vital Signs Temp 98.3 F 08/25/25 05:15 Pulse 65 08/25/25 10:00 Resp 27 H 08/25/25 10:00 BP 91/51 08/25/25 10:00 Pulse Ox 95 08/25/25 10:00 O2 Del Method Nasal Cannula 08/25/25 09:02 O2 Flow Rate 2 08/25/25 09:02 FiO2 40 08/25/25 08:28 08/24/25 08/25/25 08/25/25 22:59 06:59 14:59 Intake Total 1937. / 3388.067 1569.70 / 4957.767 114.4 / 114.4 Balance 1937. / 3388.067 1569.70 / 4957.767 114.4 / 114.4 Weight last 48 hrs Weight 217 lb 2.485 oz Weight 214 lb 8 oz Physical Exam 2 Narrative: General: Cachectic ancient gentleman in ICU maintaining his own airway. Mental status exam: He opens his eyes briefly to voice. Stuporous but arousable. He follows no commands. He cannot say his name. Cranial nerves: No gaze preference at this time. He does not keep his eyes open long enough to check for threat. Motor: Paratonic rigidity in all 4 extremities with gegenhalten. Deep tendon reflexes: Toes neither upgoing nor downgoing. Hyporeflexic throughout. Lungs clear to auscultation. Cardiovascular: S1 and S2 normal without murmur or gallop. Abdomen scaphoid, thin. Extremities: Unremarkable. Data 08/24/25 11:24 08/25/25 04:41 Other data: CT head was reviewed and shows diffuse white matter changes A&P Assessment and plan 1. Acute metabolic encephalopathy: This is an ancient gentleman who has remained fiercely independent and continued to stay on his own despite family's fears that he would end up on the floor . He recognized that that was a possibility and was comfortable with that and expressed that to his 2 daughters in the past. He is well-known to his care provider, Efrem Regalado, who has been seeing him frequently and knows him well. It is the opinion of the patient's care provider, Efrem Regalado, that he would not want to be kept in his current state by aggressive medical measures and that he would prefer to with comfort and dignity. This was discussed fully with the patient's daughters. Recommend comfort care and transition to hospice. I talked with Dr. Chelita James, reviewed all of the notes on the patient's chart, talked with Efrem Regalado, talked with both daughters and niece and with the patient himself within his capacity. 2. Enrolled in chronic care management: 3. Acute renal failure due to rhabdomyolysis: 4. Scrotal mass: He has a massive tumor that would be unresectable and if he were to be resuscitated from his current state it would be for a lingering painful PDMP PDMP Reviewed: Not Reviewed Consult Attestations 2 Medical Necessity Statement: Patient being aggressively resuscitated from coma Coding Level of Care Code Acute Code for Chg Fwd Diagnoses Acute metabolic encephalopathy G93.41 Enrolled in chronic care management Z78.9 Acute renal failure due to rhabdomyolysis N17.9; M62.82 Scrotal mass N50.89
[2025-08-25] MEDS: magnesium sulfate premix 1 GM/100 ML PIGGYBACK IV (11:59)
[2025-08-25] MEDS: dextrose 5% + KCl 20 mEq 20 MEQ/1,000 ML BAG 100 MEQ IV (12:28)
--- NOTE | 2025-08-25 13:01 | PC.SOCIAL ---
IMM Update pg 2 of IMM updated and reviewed w/ patient. Copy provided and copy dated, initialed and placed in chart.
--- NOTE | 2025-08-25 16:07 | PC.NURSE ---
shift summary: DR Dejesus took over care, patient was assessed by dr. lane. goal of care was transitioned to comfort care
[2025-08-25] MEDS: morphine 4 mg/mL SDV 1 mL IVP (16:09)
[2025-08-25] MEDS: morphine 4 mg/mL SDV 1 mL 2 MG IVP (18:31)
[2025-08-25] MEDS: LORazepam 2 mg/mL INJ 1 mL IVP (18:32)
[2025-08-26] VITALS (7 sets, daily range): BP systolic 77–81; BP diastolic 39–48; PULSE 62–91; RESP 18–26; TEMP 36.3–39.1; O2SAT 59–95
[2025-08-26] MEDS: atropine 1% op soln 2 mL Btl 3 DROP SUBLINGUAL ×3 (00:03→21:26)
[2025-08-26] MEDS: morphine 4 mg/mL SDV 1 mL IVP ×3 (07:58→21:25)
--- NOTE | 2025-08-26 11:08 | P.PN_ITS ---
Subjective 2 Subjective: No new complaints. Seen with family at bedside. Comfortable. Vitals/I&O/Wt Last Vital Signs Temp 102.3 F H 08/26/25 10:06 Pulse 62 08/26/25 10:06 Resp 21 H 08/26/25 10:06 BP 81/39 08/26/25 10:06 Pulse Ox 95 08/26/25 10:06 O2 Del Method Room Air 08/26/25 10:06 O2 Flow Rate 2 08/25/25 20:00 FiO2 40 08/25/25 08:28 08/25/25 08/26/25 08/26/25 22:59 06:59 14:59 Intake Total 1185 / 1467.7 1120 / 2587.7 Output Total 240 / 240 Balance 1185 / 1467.7 880 / 2347.7 Weight last 48 hrs Weight 97.522 kg Weight 98.5 kg Physical Exam 2 Narrative: Examination deferred due to comfort care status. Data 08/24/25 11:24 08/25/25 04:41 A&P Assessment and plan 1. Acute metabolic encephalopathy: 2. Acute renal failure due to rhabdomyolysis: 3. Hypomagnesemia: 4. Generalized abdominal tenderness, unspecified whether rebound tenderness present: 5. Acute hypoxic respiratory failure: 6. Cardiac arrhythmia, unspecified cardiac arrhythmia type: 7. Acute hypokalemia: 8. Scrotal mass: 9. 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 Essential hypertension: 11. Renal artery external compression: 12. Hypothermia: 13. Rhabdomyolysis: 14. Advanced age: Plan: 1. Acute respiratory failure with hypoxia: Patient currently on BiPAP, the primary or main cause of this uncertain at the moment. I was definitely going to look more into this, but family is requesting change in treatment modalities, and so holding further changes or orders from me. See my comments below. 2. Acute hypomagnesemia with associated acute hypokalemia + hypoglycemia: I had gone ahead and changed patient's infusion to D5 plus 20 mEq of KCl, to alternate with half saline infusion. I also ordered 2 g of IV magnesium sulfate, with intention to repeat all levels in the morning. See my comments below for more details. 3. Acute renal failure due to rhabdomyolysis: This is remarkably improving, with CPK level today more than 80% resolved. My intention is to continue cautious IV rehydration, and continue to monitor CPK and BMP daily, etc. 4. Acute metabolic encephalopathy: Apparent resolving. However, patient appears too sleepy today; not very sure about this. My initial plan is to get an ABG, so as to be sure patient is not acidotic. However, family is requesting change in treatment personnel, etc. See my comments below. 5. Generalized abdominal tenderness: Not sure what was causing this at the moment. There could be some new or ongoing acute intra-abdominal problem that needs to be elucidated and looked into. I have gone ahead to ordeedr a CT scan of the abdomen and pelvis with IV contrast. However, family at the moment is rejecting this. Again, see my comments below. 6. Scrotal mass with associated intra-abdominal mass on the lower right. As mentioned in my previous note(s), I am not really addressing this at the moment. This is definitely something that could well be followed up outpatient, after a getting a tissue diagnosis, etc., except as otherwise clearly and coherently directed by patient. 7. Unspecified dysrhythmia: This appears to be more of bradycardia, possibly iatrogenic, otherwise not specified. Continue to defer to cardiology for continued expert advice on this. 8. Essential hypertension: Patient blood pressure currently stable, though on the low side. We are holding all antihypertensives at this time. Continue to monitor closely. Plan for the day: After multiple discussions with family members and DPOA at bedside, consultation with cardiology and neurology patient was transition to comfort care measures status only yesterday. Continue treatment as per comfort care measures status. Case management consultation for comfortable discharge planning. PDMP PDMP Reviewed: Not Reviewed Attestations 2 Medical Necessity Statement*: Requires further hospitalization while comfort care measures are done and safe discharge planning is sought Diagnoses Acute metabolic encephalopathy G93.41 Acute renal failure due to rhabdomyolysis N17.9; M62.82 Hypomagnesemia E83.42 Generalized abdominal tenderness, unspecified whether rebound tenderness present R10.817 Presence of rebound: not specified Acute hypoxic respiratory failure J96.01 Cardiac arrhythmia, unspecified cardiac arrhythmia type I49.9 Arrhythmia type: unspecified cardiac arrhythmia Acute hypokalemia E87.6 Scrotal mass N50.89 Other intra-abdominal and pelvic swelling, mass and lump R19.09 Essential hypertension I10 Renal artery external compression I77.1 Hypothermia T68.XXXA Rhabdomyolysis M62.82 Advanced age R54
[2025-08-26] MEDS: LORazepam 2 mg/mL INJ 1 mL IVP (14:29)
--- NOTE | 2025-08-26 23:50 | PC.NURSE ---
This nurse called patients daughter Mrs. Lundy at 2345 to notify her that patients vital signs have had a change. Mrs. Lundy understood and all questions were answered at this time.
--- NOTE | 2025-08-27 02:02 | P.PN_ITS ---
Subjective 2 Subjective: Patient at 1:22 A.M. Family were notified and coming to bedside. Vitals/I&O/Wt Last Vital Signs Temp 99.0 F 08/26/25 23:54 Pulse 91 08/26/25 23:54 Resp 22 H 08/26/25 23:54 BP 77/48 08/26/25 23:54 Pulse Ox 59 L 08/26/25 23:54 O2 Del Method Nasal Cannula 08/26/25 23:54 O2 Flow Rate 3 08/26/25 23:54 FiO2 40 08/25/25 08:28 Weight last 48 hrs Weight 97.522 kg Weight 98.5 kg Data 08/24/25 11:24 08/25/25 04:41 A&P PDMP PDMP Reviewed: Not Reviewed Attestations 2 Medical Necessity Statement*: Coding Level of Care Code Acute Code for Chg Fwd
--- NOTE | 2025-08-27 03:56 | PC.NURSE ---
Douglas time 0340.
--- NOTE | 2025-08-27 04:23 | PC.NURSE ---
Patient noticed to be bradycardic in the lower 40's at approximately 0119. Family contacted at this time by DARREL Modi charge. This nurse entered patients room to assess patient. Patient with out pulse or respiration at 0122 verified by this nurse and Yaneth ROJO. supervisor compressed yeast and Dr. Ramirez notified of patient by Rian ROJO charge at 0125. [facility] services contacted by Rian ROJO charge at 0130. Post mortem care provided this nurse and Lisette MONTANEZ at 0140. Dr. Ramirez at bedside at 0152. Multiple family members at bedside at 0155. home of choice is [facility], body transfer sheet signed by patients daughter. [facility] notified by this nurse at 0215 of patients . [facility] staff spoke with Rian ROJO charge at approximately 0330 and reported that patient is a potential donor and to transfer patient to [facility] to await release from [facility]. Cathy [employer] Scheduler notified by Rian ROJO charge. Patient transferred to [facility] at 0345 by Cathy ROJO and Rian ROJO. Patient transferred with wedding ring remaining on right ring finger and dentures in denture cup placed in body bag with patient.
--- NOTE | 2025-08-27 05:34 | PC.NURSE ---
RIC Brown with [facility] called and spoke with JAYNE Mccann. Sherrie reports that patient will not be a donor for [facility] per patient's daughter. RIC Balderas states that patient is to be released to [facility]. DARREL Morgan[facility]habilitation inspector notified by this nurse.
== END 2025-08-27 01:22 | disposition expired | DRG 557 ==
LOC: ER 13:36 → ICU 15:44 → MEDSURG 08-25 17:15
PROVIDERS: Family Medicine; Admitting Provider Family Medicine; Emergency Provider Family Medicine; Family Provider Nurse Practitioner; PCP Nurse Practitioner; Visit Provider Student in an Organized Health Care Education/Training Program
DX: M62.82 Rhabdomyolysis (principal); G93.41 Metabolic encephalopathy; J96.01 Acute respiratory failure with hypoxia; N17.9 Acute kidney failure, unspecified; E87.21 Acute metabolic acidosis; I47.20 Ventricular tachycardia, unspecified; Z51.5 Encounter for palliative care; E16.2 Hypoglycemia, unspecified; I44.0 Atrioventricular block, first degree; F17.210 Nicotine dependence, cigarettes, uncomplicated; N50.9 Disorder of male genital organs, unspecified; E87.6 Hypokalemia; I10 Essential (primary) hypertension; E78.2 Mixed hyperlipidemia; E83.42 Hypomagnesemia; R19.00 Intra-abdominal and pelvic swelling, mass and lump, unspecified site; Z79.82 Long term (current) use of aspirin; Z90.79 Acquired absence of other genital organ(s)
CPT/HCPCS: 36415; 36416; 36600; 70450; 71045; 74176; 80048; 80051; 80053; 81001; 82009; 82330; 82550; 82805; 82962; 83605; 83690; 83735; 84100; 84484; 85007; 85025; 87040; 87637; 93005; 93306; 94660; 94664; 96365; 96366; 96367; 96372; 96375; 99291; A4222; J0282; J0283; J1265; J1610; J1650; J1720; J2060; J2270; J2543; J3372; J3373; J3475; J3480; J3490; J7030; J7070; J7799; J9999; P9046